=== PATIENT | female | born 1955 | race Caucasian/White ===

== ENCOUNTER → 2017-11-07 14:41 | Outpatient (CLI) | payer MEDICARE, SELFPAY ==
[2017-11-07 17:39] LABS: Albumin, Serum 3.2 g/dL (3.2-5.0); BUN 26 mg/dL (7-18); BUN/Creat Ratio 38.7 RATIO (10-20); Calcium,Total 8.5 mg/dL (8.5-10.1); Chloride 108 mmol/L (98-107); Creatinine, Serum 0.67 mg/dL (0.55-1.02); EST Glomerular Filtration Rate 94 mL/min (>60); Est Glom Filt Rate - Afr Amer 114 mL/min (>60); Glucose 97 mg/dL (74-106); Hemoglobin 12.1 g/dl (12.0-15.0); Mean Corp Hgb Conc 31.8 g/gl (32-36); Mean Corpuscular Hgb 28.1 pg (27.0-32.0); Mean Corpuscular Volume 88.4 fL (81-99); Mean Platelet Vol. 10.3 fl (6.2-12.0); Phosphorus 3.5 mg/dL (2.5-4.9); Platelet Count 240 K/mm3 (150-450); Potassium 3.7 mmol/L (3.5-5.1); RBC Distribution Width CV 14.3 % (11.6-14.6); RBC Distribution Width SD 46.1 fl (35.1-43.9); Sodium Level 140 mmol/L (136-145); White Blood Count 5.3 K/mm3 (4.4-11.0)
[2017-11-07 17:53] LABS: Protein, Urine (Random) 25.7 mg/dL (<11.9); Protein:Creat Ratio 223 mg/g CRE (0-200)
[2017-11-07 18:10] LABS: PTHIN 63.5 pg/mL (18.4-80.1); Vitamin D,25 Hydroxy 30.7 ng/mL (29.95-100.01)
[2017-11-08 14:28] LABS: Absolute Neutrophil Count 3.1 X10^3/uL (2.0-7.7); Basophil% 0.4 % (0-1); Eosinophils% 1.8 % (0-5); Lymphocyte % 36.4 % (19-41); Neutrophil # 3.05 X10^3/uL (2.7-7.7); Neutrophil % 54.4 % (47-70); POSITIVE COUNT NO; POSITIVE DIFFERENTIAL NO; POSITIVE MORPHOLOGY NO
[2017-11-08 14:29] LABS: Absolute Lymphocyte Count 2.04 X10^3/ul (0.83-4.51); Basophil# 0.02 X10^3/uL; Lymphocyte # 2.04 X10^3/ul (4.0); Monocyte# 0.39 X10^3/uL
== END ==
PROVIDERS: Family Provider Family Medicine; PCP Family Medicine; Visit Provider Internal Medicine Nephrology
DX: N18.9 Chronic kidney disease, unspecified (principal); D63.1 Anemia in chronic kidney disease; N25.81 Secondary hyperparathyroidism of renal origin; N02.8 Recurrent and persistent hematuria with other morphologic changes
CPT/HCPCS: 36415; 80069; 82306; 82570; 83970; 84156; 85025; 85027

== ENCOUNTER → 2018-06-27 12:56 | Outpatient (CLI) | payer MEDICARE, SELFPAY ==
--- NOTE | 2018-06-27 13:00 | RAD_ITS ---
STUDY: X-RAY CHEST REASON FOR EXAM: Female, 63 years old. History of breast cancer TECHNIQUE: PA and lateral views of the chest. COMPARISON: None. FINDINGS: Right breast implant. There is hyperinflation of the lungs consistent with chronic obstructive lung disease (COPD). There is no demonstrated pleural abnormality. Normal size heart. Normal mediastinum and dotty. Normal visualized pulmonary arteries. There is atherosclerotic calcification of the aortic arch with tortuosity. There is demineralization of the osseous structures. Mild degenerative changes. Normal visualized ribs, clavicles, and shoulders. There is no demonstrated abnormality of the visualized soft tissue structures of the upper abdomen. RAD/Chest PA and Lateral IMPRESSION: COPD. There is no acute cardiopulmonary disease. Other nonacute findings as outlined above. Electronically Signed: Sandra Dominguez MD at 2:59 EST , Service support ,
== END ==
PROVIDERS: Family Provider Family Medicine; PCP Family Medicine; Referring Provider Internal Medicine Medical Oncology; Visit Provider Internal Medicine Medical Oncology
DX: Z85.3 Personal history of malignant neoplasm of breast (principal)
CPT/HCPCS: 71046

== ENCOUNTER → 2019-01-01 | Outpatient (CLI) | payer MEDICARE, SELFPAY ==
[2018-07-19 13:02] VITALS: BMI 26.9
[2019-01-01 09:56] LABS: Hematocrit 38.2 % (37-47); Hemoglobin 12.7 g/dl (12.0-15.0); Mean Corp Hgb Conc 33.2 g/gl (32-36); Mean Corpuscular Hgb 28.9 pg (27.0-32.0); Mean Platelet Vol. 10.4 fl (6.2-12.0); Platelet Count 246 K/mm3 (150-450); RBC Distribution Width CV 13.8 % (11.6-14.6); Red Blood Count 4.39 M/mm3 (4.2-5.4); White Blood Count 4.4 K/mm3 (4.4-11.0)
[2019-01-01 10:01] LABS: Scan Indicated on CBC? Y/N NO
[2019-01-01 10:15] LABS: Microalbumin:Creatinine Ratio 133.3 mg/g CRE (<30 mg/g CRE)
[2019-01-01 10:24] LABS: Albumin, Serum 3.4 g/dL (3.2-5.0); BUN 21 mg/dL (7-18); BUN/Creat Ratio 31.7 RATIO (10-20); Calcium,Total 8.6 mg/dL (8.5-10.1); Chloride 107 mmol/L (98-107); Creatinine, Serum 0.66 mg/dL (0.55-1.02); EST Glomerular Filtration Rate 95 mL/min (>60); Est Glom Filt Rate - Afr Amer 115 mL/min (>60); Glucose 87 mg/dL (74-106); Potassium 3.7 mmol/L (3.5-5.1); Sodium Level 141 mmol/L (136-145)
[2019-01-01 10:55] LABS: PTHIN 72.1 pg/mL (18.4-80.1)
[2019-01-01 10:57] LABS: Vitamin D,25 Hydroxy 44.4 ng/mL (29.95-100.01)
== END | disposition home or self-care (01) ==
PROVIDERS: Referring Provider Internal Medicine Nephrology; Visit Provider Internal Medicine Nephrology
DX: N25.81 Secondary hyperparathyroidism of renal origin (principal); N18.9 Chronic kidney disease, unspecified; D63.1 Anemia in chronic kidney disease; N02.8 Recurrent and persistent hematuria with other morphologic changes
CPT/HCPCS: 36415; 80069; 82043; 82306; 82570; 83970; 85027

== ENCOUNTER → 2024-05-10 | Outpatient (CLI) | payer MEDICARE, OTHER, SELFPAY ==
[2024-05-15 16:10] LABS: Calprotectin, Stool 15 ug/g (0-120)
== END | disposition home or self-care (01) ==
LOC: LAB 08:55 → LABSPEC 08:57
PROVIDERS: PCP Family Medicine; Referring Provider Internal Medicine Medical Oncology; Visit Provider Internal Medicine Medical Oncology
DX: R19.7 Diarrhea, unspecified (principal); R10.84 Generalized abdominal pain; Z85.3 Personal history of malignant neoplasm of breast; K58.9 Irritable bowel syndrome, unspecified
CPT/HCPCS: 82274; 83630; 83993; 87177; 87209

== ENCOUNTER → 2024-06-04 | Outpatient (CLI) | payer MEDICARE, OTHER, SELFPAY ==
--- OUTSIDE RECORDS SUMMARY | 2024-06-04 07:49 | XMS RPT_ITS | CCD ---
Author Organization [facility] Care Team Providers Care Education Paraprofessional Name Role Phone Sisi Noonan Unavailable Unavailable CIRA MCCRAY DO Primary Care Physician Aisha Guerra PT Unavailable Unavailable Unavailable Primary Care Provider UnavailCIRA Sellers DO Primary Care Physician [phone] CIRA MCCRAY DO Primary Care Unavailable INA GODINEZ, DR BILL Levy Attending Unav ailable CIRA MCCRAY DO Attending Unavailable CIRA MCCRAY DO Primary Care Unavailable CIRA MCCRAY DO Primary Care Unavailable ANDRES JOHNSON Attending Unavailable JOHANN GODINEZ, DR JEREMIAH Moran Attending Unavailab CIRA Kwok DO Primary Care Unavailable Medications Current Medications Medication Drug Class(es) Dates Sig (Normalized) Sig (Original) alendronic acid 70 mg oral tablet (13 sources) Bisphosphonate Start: 09-01-2023 Fosamax 70 mg oral tablet Dose : 70 mg = 1 tab(s), Oral, qWeek, # 13 tab(s), 4 Refill(s), Pharmacy: [facility]/pharmacy #[id number], Osteopenia, 165, cm, 09/01/23 9:33:00 EST, Height, kg, 09/01/23 9:33:00 EST, Dosing Weight Start Date: 09/01/23 Status: Ordered Start: 06-26-2021 End: 08-20-2022 Fosamax 70 mg oral tablet Do se : 70 mg = 1 tab(s), Oral, qWeek, # 13 tab(s), 4 Refill(s), Pharmacy: [facility]/pharmacy #[id number], Osteopenia, 164.5, cm, 06/16/22 13:18:00 EDT, Height, kg, 06/16/22 13:18:00 EDT, Dosing Weight Start Date: 06/16/22 Status: Ordered Calcium (1 source) Phosphate Binder, Calcium Start: 06-27-2020 calcium calcium, 600mg, 0 Refill(s), 69.55 Start Date: 06/27/20 Status: Ordered calcium carbonate 1250 mg / cholecalciferol 125 unt oral tablet (6 sources) Vitamin D Start: 10-27-2021 take 1 tablet by mouth once daily calcium (as carbonate)-vitami n D 500 mg-3.125 mcg (125 intl units) oral tablet Dose = 1 tab(s), Oral, qDay, 0 Refill(s) Start Date: 10/27/21 Status: Ordered oxyquinoline sulfate 0.45721 mg/mg / sodium dodecyl sulfate 0.0001 mg/mg vaginal gel (8 sources) Start: 10-25-2022 Trimo-Shaikh 0.02 5% vaginal gel with applicator See Instructions, APPLY 0.5 GM VAGINALLY TWO TIMES WEEKLY, # 113.4 gram(s), 1 Refill(s), Pharmacy: [facility] STORE [id number], 164, cm, 08/04/22 10:08:00 EST, Height, kg, 08/04/22 10:08:00 EST, Dosing Weight Start Date: 10/25/22 Status: Ordered Start: 10-27-2021 TRIMOSAN TRIMO SHAIKH, 0.5gm, Vaginal, 2X/week, # 120 gram(s), 0 Refill(s), [id number] 164, cm, 10/27/21 13:47:00 EDT, Height, 76.9, kg, 10/27/21 13:47:00 EDT, Dosing Weight Start Date: 10/27/21 Status: Ordered emollients, vaginal gel (2 sources) Start: 11-02-2022 emollients, va ginal gel See Instructions, apply to pessary with weekly removal and reinsertion, # 47.2 gram(s), 0 Refill(s), Pharmacy: [facility]/pharmacy #[id number], 164, cm, 08/04/22 10:08:00 EST, Height, 76.7 Start Date: 11/02/22 Status: Ordered losartan potassium 50 mg oral tablet (6 sources) Angiotensin 2 Receptor Khai Start: 06-16-2022 losartan 50 mg oral tablet Dose : 50 mg = 1 tab(s), Oral, qDay, # 30 tab(s), 0 Refill(s) Start Date: 06/16/22 Status: Ordered triamcinolone 0.1% topical lotion (1 source) Start: 06-26-2021 End: 07-10-2021 triamcinolone 0.1% topical lotion Apply 1 anthony, Topical, QID, X 14 day(s), # 60 mL, 0 Refill(s), Pharmacy: [facility]/pharmacy #[id number], Lotion, 163.9, cm, 06/26/21 13:25:00 EST, Height, 78.4, kg, 06/26/21 13:25:00 EST, Dosing Weight Start Date: 06/26/21 Stop Date: 07/10/21 Status: Ordered Vitamin D3 1000 intl units oral capsule (1 source) Start: 04-11-2019 Vitamin D3 100 0 intl units oral capsule Dose : 1,000 unit(s) = 1 cap(s), Oral, Daily, 0 Refill(s) Start Date: 04/11/19 Status: Ordered Vitamin D3 25 mcg (1000 intl units) oral capsule (1 source) Start: 06-16-2022 Vitamin D3 25 mcg (1000 intl units) oral capsule Dose : 25 mcg = 1 cap(s), Oral, Daily, 0 Refill(s) Start Date: 06/16/22 Status: Ordered Vitamin D3 50 mcg (2000 intl units) oral capsule (5 sources) Start: 08-04-2022 Vitamin D3 50 mcg (2000 intl units) oral capsule Dose : 50 mcg = 1 cap(s), Oral, qDay, # 60 cap(s), 0 Refill(s) Start Date: 08/04/22 Status: Ordered Completed/Discontinued Medications Medication Drug Class(es) Dates Sig (Normalized) Sig (Original) calcium phosphate dibas/vit D3 (VITAMIN D, WITH CALCIUM, ORAL) (1 source) Start: 9 take 1 capsule by mouth once daily calcium phosphate dibas/vit D3 (VITAMIN D, WITH CALCIUM, ORAL) Take 1 capsule by mouth once daily. 0 04/11/2019 Active Comment on above: Take 1 capsule by [facility] once daily. lisinopril 10 mg oral tablet (8 sources) Angiotensin Converting Enzyme Inhibitor Start: 9 take 1 tablet by mouth once daily lisinopril (ZESTRIL, PRINIVIL) 10 mg tablet Take 10 mg by mouth once daily. 0 11/06/2019 Active Comment on above: Take 10 mg by mouth once daily. methylPREDNISolone (1 source) Corticosteroid Start: 0 methylPREDNISolone (MEDROL, MAISHA,) 4 mg Dose-Pack Indications: Poison dion dermatitis As instructed per package, please take with food 1 Package 0 01/22/2020 Active Comment on above: As instructed per [facility] [place], please take with food Problems Active Problems Problem Classification Problem Date Documented Date Episodic/Chronic Acute bronchitis (1 source) Acute bronchitis 11-15-2023 Episodic Allergic reactions (13 sources) Contact dermatitis 06-26-2021 Episodic Cancer of breast (13 sources) Malignant tumor of breast 04-10-2019 Chroni c Comment on above: in past Cancer of breast (14 sources) History of malignant neoplasm of breast; Translations: [Personal history of malignant neoplasm of breast] Onset: 0 05-15-2019 Episodic Deficiency and other anemia (1 source) Anemia of chronic renal failure; Translations: [Anemia in chronic kidney disease] Chronic Disorders of lipid metabolism (13 sources) Hypercholesterolemia 04-10-2019 Chronic Essential hypertension (14 sources) Hypertensive disorder; Translations: [Essential (primary) hypertension] Onset: 0 05-15-2019 Chronic Genitourinary symptoms and ill-defined conditions (1 source) Proteinuria; Translations: [Proteinuria, unspecified] Episodic Nephritis; nephrosis; renal sclerosis (13 sources) 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 Nutritional deficiencies (15 sources) Vitamin D deficiency; Translations: [Vitamin D deficiency, unspecified] Onset: 0 04-11-2019 Chronic Osteoarthritis (1 source) Osteoarthritis of knee; Translations: [Unilateral primary osteoarthritis, right knee] Chronic Other aftercare (1 source) Follow-up orthopedic assessment; Translations: [Aftercare following joint replacement surgery] Chronic Other bone disease and musculoskeletal deformities (13 sources) Osteopenia 04-10-2019 Episodic Other connective tissue disease (1 source) Artificial knee joint present; Translations: [Presence of right artificial knee joint] Chronic Other diseases of kidney and ureters (1 source) Hyperparathyroidism due to renal insufficiency; Translations: [Secondary hyperparathyroidism of renal origin] Chronic Other diseases of kidney and ureters (13 sources) Anemia of renal disease 04-11-2019 Episodic Other endocrine disorders (13 sources) Secondary hyperparathyroidism 04-10-2019 Chronic Other non-traumatic joint disorders (13 sources) Knee pain 04-11-2019 Episodic Other nutritional; endocrine; and metabolic disorders (1 source) Overweight in adulthood with body mass index of 25 or more but less than 30 11-15-2023 Episodic Other screening for suspected conditions (not mental disorders or infectious disease) (5 sources) Viral screening status 08-04-2022 Episodic Other upper respiratory disease (1 source) Seasonal allergy 11-15-2023 Chronic Other upper respiratory infections (12 sources) Pharyngitis 09-12-2021 Episodic Residual codes; unclassified (13 sources) Needs influenza immunization 06-27-2020 Episodic Residual codes; unclassified (13 sources) Requires vaccination 06-27-2020 Episodic Residual codes; unclassified (1 source) Screening due 11-15-2023 Episodic Unclassified (1 source) Unknown / UNK(Unknown) Onset: 7 Unclassified (20 sources) Patient encounter status 04-11-2019 Unclassified (6 sources) Pain of knee region 06-16-2022 Unclassified (5 sources) Influenza vaccination status 08-04-2022 Unclassified (1 source) Never used tobacco 09-01-2023 Past or Other Problems Problem Classification Problem Date Documented Da te Episodic/Chronic Unclassified (1 source) RT EARACHE,PAIN MOVING INTO NECK AND JAW Onset: 05-14-2017 Results Test Name Value Interpretation Reference Range Facility MA MAMMOGRAM SCREENING LEFT W/TOMOon 04-09-2024 MA MAMMOGRAM SCREENING LEFT W/JOSÉ ORIGINAL FROM: [facility] [address] [place] [id number] PROCEDURE FOR: GABRIELE CUEVAS [address] [place] [address] Home: PID#: [id number] Exam#: [id number] : 1955 Age: 69 TO: ANDRES JOHNSON MD [address] [address] EXAMINATION: SCREENING DIGITAL LEFT MAMMOGRAM WITH TOMOSYNTHESIS, 04/09/2024 11:11 am TECHNIQUE: Screening mammography of the left breast was performed with tomosynthesis. 2D standard and 3D tomosynthesis combination imaging performed through the left breast in the MLO and CC projection. Computer aided detection was utilized in the interpretation of this exam. COMPARISON: 04/08/2023, 04/07/2022 HISTORY: Breast cancer screening. FINDINGS: BREAST DENSITY: The breasts are heterogeneously dense, which may obscure small masses. There are benign appearing calcifications in the left breast. There is a benign appearing unchanged asymmetry in the left breast. There are no significant masses or calcifications. IMPRESSION: No mammographic evidence of malignancy. Continued screening with annual mammograms is recommended. Tyrer Cuzick risk calculations do not apply for this patient. BIRADS: BI-RADS: 2: Benign RECALL: 1 year screening RECALL TYPE: mammo LETTER SENT: Normal BI-RADS 1 and 2 Interpreted by: Anderson Hummel MD Preliminary Report By: Anderson Hummel MD Electronically signed By Anderson Hummel MD Dictated Date: 04/09/2024 6:01:24 PM Prelim Date: 04/09/2024 6:02:04 PM Sign Date: 04/09/2024 6:02:04 PM Ordering Provider: ANDRES JOHNSON copy to: CIRA MCCRAY DO, ph: [phone], fax: NO FAX Attendant [employer]: LIZET CHAIREZ RT(R)(M)(CT) letter sent: Normal BI-RADS 1 and 2 Mammogram BI-RADS: 2 Benign Normal [facility] ([place]) .Auto Diffon 01-05-2024 Basophil, Absolute 0.1 10 3/mcL Normal 0.0-0.2 [facility] ([place]) Comment on above: Performed By: #### P TH #### [address] [address] #### GFR, RFP, VIDH, ADIFF, ANEU, CBC #### [address] [address] Basophils/100 WBC (Bld) 1.3 % Normal 0.0-2.5 [facility] ([place]) Comment on above: Performed By: #### P TH #### [place] [address] #### GFR, RFP, VIDH, ADIFF, ANEU, CBC #### [address] [address] Eosinophil, Absolute 0.2 10 3/mcL Normal 0.0-0.4 [facility] ([place]) Comment on above: Performed By: #### P TH #### [place] [address] #### GFR, RFP, VIDH, ADIFF, ANEU, CBC #### [address] [address] Eosinophils/100 WBC (Bld) 2.8 % Normal 0.0-7.0 [facility] ([place] Comment on above: Performed By: #### P TH #### [place] [address] #### GFR, RFP, VIDH, ADIFF, ANEU, CBC #### [address] [address] Lymphocyte, Absolute 3.2 10 3/mcL Normal 0.8-3.9 [facility] ([place]) Comment on above: Performed By: #### P TH #### [place] [address] #### GFR, RFP, VIDH, ADIFF, ANEU, CBC #### [address] [address] Lymphocytes/100 WBC (Bld) 42.9 % Normal 10.0-50.0 [facility] ([place] Comment on above: Performed By: #### P TH #### [place] [address] #### GFR, RFP, VIDH, ADIFF, ANEU, CBC #### [address] [address] Monocyte, Absolute 0.5 10 3/mcL Normal 0.2-1.0 [facility] ([place]) Comment on above: Performed By: #### P TH #### [address] [address] #### GFR, RFP, VIDH, ADIFF, ANEU, CBC #### [address] [address] Monocytes/100 WBC (Bld) 7.4 % Normal 1.7-13.0 [facility] ([place] Comment on above: Performed By: #### P TH #### [place] [address] #### GFR, RFP, VIDH, ADIFF, ANEU, CBC #### [address] [address] Neutrophils/100 WBC (Bld) 45.6 % Normal 37.0-80.0 [facility] ([place]) Comment on above: Performed By: #### P TH #### [place] [address] #### GFR, RFP, VIDH, ADIFF, ANEU, CBC #### [address] [address] .GFRon 01-05-2024 GFR 89 ml/min/1.73sqm Normal [facility] ([place]) Comment on above: Result Comment: GFR Population mean for , Non- Americans Ages 20-29 = 116 mL/min/1.73 sq.m. Ages 30-39 = 107 mL/min/1.73 sq.m. Ages 40-49 = 99 mL/min/1.73 sq.m. Ages 50-59 = 93 mL/min/1.73 sq.m. Ages 60-69 = 85 mL/min/1.73 sq.m. Ages 70+ = 75 mL/min/1.73 sq.m. Chronic Kidney Disease: Less than 60 mL/min/1.73 square meters End Stage Renal Disease: Less than 15 mL/min/1.73 square meters Performed By: #### P TH #### [place] [address] #### GFR, RFP, VIDH, ADIFF, ANEU, CBC #### [address] [address] GFR Non- 73 ml/min/1.73sqm Normal [facility] ([place]) Comment on above: Result Comment: GFR Population mean for , Non- Americans Ages 20-29 = 116 mL/min/1.73 sq.m. Ages 30-39 = 107 mL/min/1.73 sq.m. Ages 40-49 = 99 mL/min/1.73 sq.m. Ages 50-59 = 93 mL/min/1.73 sq.m. Ages 60-69 = 85 mL/min/1.73 sq.m. Ages 70+ = 75 mL/min/1.73 sq.m. Chronic Kidney Disease: Less than 60 mL/min/1.73 square meters End Stage Renal Disease: Less than 15 mL/min/1.73 square meters Performed By: #### P TH #### [place] [address] #### GFR, RFP, VIDH, ADIFF, ANEU, CBC #### [address] [address] .NEUABSon 01-05-2024 Neutrophil, Absolute 3.4 10 3/mcL Normal 2.9-6.2 [facility] ([place]) Comment on above: Performed By: #### P TH #### [place] [address] #### GFR, RFP, VIDH, ADIFF, ANEU, CBC #### [address] [address] CBCon 01-05-2024 Erythrocyte distribution width (RBC) [Ratio] 15.3 % High 11.5-14.5 [facility] ([place]) Comment on above: Performed By: #### P TH #### [place] [address] #### GFR, RFP, VIDH, ADIFF, ANEU, CBC #### [address] [address] Hematocrit (Bld) [Volume fraction] 37.7 % Normal 37.0-47.0 [facility] ([place] Comment on above: Performed By: #### P TH #### [place] [address] #### GFR, RFP, VIDH, ADIFF, ANEU, CBC #### [address] [address] Hgb 13.1 G/dL Normal 12.0-16.0 [facility] ([place] Comment on above: Performed By: #### P TH #### [place] [address] #### GFR, RFP, VIDH, ADIFF, ANEU, CBC #### [address] [address] MCH (RBC) [Entitic mass] 29.5 pg Normal 27.0-31.2 [facility] ([place] Comment on above: Performed By: #### P TH #### [place] [address] #### GFR, RFP, VIDH, ADIFF, ANEU, CBC #### [address] [address] MCHC 34.8 G/dL Normal 33.0-37.0 [facility] ([place] Comment on above: Performed By: #### P TH #### [place] [address] #### GFR, RFP, VIDH, ADIFF, ANEU, CBC #### [address] [address] MCV (RBC) [Entitic vol] 84.7 fL Normal 80.0-94.0 [facility] ([place] Comment on above: Performed By: #### P TH #### [place] [address] #### GFR, RFP, VIDH, ADIFF, ANEU, CBC #### [address] [address] Platelet 243 10 3/mcL Normal 130-400 [facility] ([place]) Comment on above: Performed By: #### P TH #### [place] [address] #### GFR, RFP, VIDH, ADIFF, ANEU, CBC #### [address] [address] Platelet mean volume (Bld) [Entitic vol] 7.9 fL Normal 7.4-10.4 [facility] ([place] Comment on above: Performed By: #### P TH #### [place] [address] #### GFR, RFP, VIDH, ADIFF, ANEU, CBC #### [address] [address] RBC 4.45 10 6/mcL Normal 4.20-5.40 [facility] ([place] Comment on above: Performed By: #### P TH #### [place] [address] #### GFR, RFP, VIDH, ADIFF, ANEU, CBC #### [address] [address] WBC 7.5 10 3/mcL Normal 4.6-10.8 [facility] ([place] Comment on above: Performed By: #### P TH #### [place] [address] #### GFR, RFP, VIDH, ADIFF, ANEU, CBC #### [address] [address] CRURon 01-05-2024 U Creatinine 67.6 mg/dL Normal 28.0-117.0 [facility] ([place] Comment on above: Performed By: #### P MIGUEL ANGEL GOODWIN #### [address] [address] PRURon 01-05-2024 U Protein 47 mg/dL High 0-11 [facility] ([place] Comment on above: Performed By: #### P MIGUEL ANGEL GOODWIN #### [address] [address] PTHon 01-05-2024 PTH, Intact 78.2 pg/mL Normal 18.5-88.0 [facility] ([place] Comment on above: Performed By: #### P TH #### [place] [address] #### GFR, RFP, VIDH, ADIFF, ANEU, CBC #### [address] [address] RFPon 01-05-2024 Albumin Level 3.4 G/dL Normal 3.4-4.8 [facility] ([place] Comment on above: Performed By: #### P TH #### [place] [address] #### GFR, RFP, VIDH, ADIFF, ANEU, CBC #### [address] [address] BUN/Creatinine Ratio 24 ratio Normal 7-27 [facility] ([place]) Comment on above: Performed By: #### P TH #### [place] [address] #### GFR, RFP, VIDH, ADIFF, ANEU, CBC #### [address] [address] Calcium [Mass/Vol] 8.8 mg/dL Normal 8.4-10.2 [facility] ([place]) Comment on above: Performed By: #### P TH #### [place] [address] #### GFR, RFP, VIDH, ADIFF, ANEU, CBC #### [address] [address] Chloride [Moles/Vol] 104 mmol/L Normal 98-107 [facility] ([place]) Comment on above: Performed By: #### P TH #### [place] [address] #### GFR, RFP, VIDH, ADIFF, ANEU, CBC #### [address] [address] CO2 [Moles/Vol] 28 mmol/L Normal 23-31 [facility] ([place] Comment on above: Performed By: #### P TH #### [place] [address] #### GFR, RFP, VIDH, ADIFF, ANEU, CBC #### [address] [address] Creatinine [Mass/Vol] 0.78 mg/dL Normal 0.55-1.02 [facility] ([place]) Comment on above: Performed By: #### P TH #### [place] [address] #### GFR, RFP, VIDH, ADIFF, ANEU, CBC #### [address] [address] Electrolyte Balance 8.0 mEq/L Normal 4.0-15.0 [facility] ([place]) Comment on above: Performed By: #### P TH #### [place] [address] #### GFR, RFP, VIDH, ADIFF, ANEU, CBC #### [address] [address] Glucose [Mass/Vol] 93 mg/dL Normal 80-115 [facility] ([place]) Comment on above: Performed By: #### P TH #### [place] [address] #### GFR, RFP, VIDH, ADIFF, ANEU, CBC #### [address] [address] Phosphate [Mass/Vol] 3.8 mg/dL Normal 2.3-4.1 [facility] ([place] Comment on above: Performed By: #### P TH #### [place] [address] #### GFR, RFP, VIDH, ADIFF, ANEU, CBC #### [address] [address] Potassium [Moles/Vol] 4.0 mmol/L Normal 3.5-5.1 [facility] ([place]) Comment on above: Performed By: #### P TH #### [place] [address] #### GFR, RFP, VIDH, ADIFF, ANEU, CBC #### [address] [address] Sodium [Moles/Vol] 140 mmol/L Normal 136-145 [facility] ([place]) Comment on above: Performed By: #### P TH #### [address] [address] #### GFR, RFP, VIDH, ADIFF, ANEU, CBC #### [address] [address] Urea nitrogen [Mass/Vol] 19 mg/dL High 7-18 [facility] ([place]) Comment on above: Performed By: #### P TH #### [place] [address] #### GFR, RFP, VIDH, ADIFF, ANEU, CBC #### [address] [address] VIDHon 01-05-2024 Vit. D 25-Hydroxy 48.4 ng/mL Normal [facility] ([place]) Comment on above: Result Comment: Inte rpretive Values Based on Total 25(OH) Vitamin D: Deficient <20 ng/mL Insufficient 20 - <30 ng/mL Sufficient 30-100 ng/mL Performed By: #### P TH #### [place] [address] #### GFR, RFP, VIDH, ADIFF, ANEU, CBC #### [address] [address] .GFRon 09-06-2023 GFR 106 ml/min/1.73sqm Normal [facility] ([place]) Comment on above: Result Comment: GFR Population mean for , Non- Americans Ages 20-29 = 116 mL/min/1.73 sq.m. Ages 30-39 = 107 mL/min/1.73 sq.m. Ages 40-49 = 99 mL/min/1.73 sq.m. Ages 50-59 = 93 mL/min/1.73 sq.m. Ages 60-69 = 85 mL/min/1.73 sq.m. Ages 70+ = 75 mL/min/1.73 sq.m. Chronic Kidney Disease: Less than 60 mL/min/1.73 square meters End Stage Renal Disease: Less than 15 mL/min/1.73 square meters Performed By: #### P TH #### [place] [address] #### GFR, RFP, VIDH, ADIFF, ANEU, CBC #### [address] [address] GFR Non- 87 ml/min/1.73sqm Normal [facility] ([place]) Comment on above: Result Comment: GFR Population mean for , Non- Americans Ages 20-29 = 116 mL/min/1.73 sq.m. Ages 30-39 = 107 mL/min/1.73 sq.m. Ages 40-49 = 99 mL/min/1.73 sq.m. Ages 50-59 = 93 mL/min/1.73 sq.m. Ages 60-69 = 85 mL/min/1.73 sq.m. Ages 70+ = 75 mL/min/1.73 sq.m. Chronic Kidney Disease: Less than 60 mL/min/1.73 square meters End Stage Renal Disease: Less than 15 mL/min/1.73 square meters Performed By: #### P TH #### [place] [address] #### GFR, RFP, VIDH, ADIFF, ANEU, CBC #### [address] [address] [facility] Albumin Level 3.3 G/dL Low 3.4-4.8 [facility] ([place] Comment on above: Order Comment: Copy to Dr. Buckley please Performed By: #### P TH #### [place] [address] #### GFR, RFP, VIDH, ADIFF, ANEU, CBC #### [address] [address] Albumin/Globulin [Mass ratio] 0.9 {ratio} Low 1.1-2.5 [facility] ([place] Comment on above: Order Comment: Copy to Dr. Buckley please Performed By: #### P TH #### [place] [address] #### GFR, RFP, VIDH, ADIFF, ANEU, CBC #### [address] [address] ALP [Catalytic activity/Vol] 66 U/L Normal 40-135 [facility] ([place] Comment on above: Order Comment: Copy to Dr. Buckley please Performed By: #### P TH #### [place] [address] #### GFR, RFP, VIDH, ADIFF, ANEU, CBC #### [address] [address] ALT [Catalytic activity/Vol] 16 U/L Normal 14-59 [facility] ([place] Comment on above: Order Comment: Copy to Dr. Buckley please Performed By: #### P TH #### [place] [address] #### GFR, RFP, VIDH, ADIFF, ANEU, CBC #### [address] [address] AST [Catalytic activity/Vol] 12 U/L Normal 10-40 [facility] ([place] Comment on above: Order Comment: Copy to Dr. Buckley please Performed By: #### P TH #### [place] [address] #### GFR, RFP, VIDH, ADIFF, ANEU, CBC #### [address] [address] Bili Total 0.5 mg/dL Normal 0.2-1.0 [facility] ([place] Comment on above: Order Comment: Copy to Dr. Buckley please Result Comment: Use of this assay is not recommended for patients undergoing treatment with eltrombopag due to the potential for falsely elevated results. Performed By: #### P TH #### [place] [address] #### GFR, RFP, VIDH, ADIFF, ANEU, CBC #### [address] [address] BUN/Creatinine Ratio 25 ratio Normal 7-27 [facility] ([place] Comment on above: Order Comment: Copy to Dr. Buckley please Performed By: #### P TH #### [place] [address] #### GFR, RFP, VIDH, ADIFF, ANEU, CBC #### [address] [address] Calcium [Mass/Vol] 9.0 mg/dL Normal 8.4-10.2 [facility] ([place]) Comment on above: Order Comment: Copy to Dr. Buckley please Performed By: #### P TH #### [place] [address] #### GFR, RFP, VIDH, ADIFF, ANEU, CBC #### [address] [address] Chloride [Moles/Vol] 107 mmol/L Normal 98-107 [facility] ([place] Comment on above: Order Comment: Copy to Dr. Buckley please Performed By: #### P TH #### [place] [address] #### GFR, RFP, VIDH, ADIFF, ANEU, CBC #### [address] [address] CO2 [Moles/Vol] 28 mmol/L Normal 23-31 [facility] ([place] Comment on above: Order Comment: Copy to Dr. Buckley please Performed By: #### P TH #### [place] [address] #### GFR, RFP, VIDH, ADIFF, ANEU, CBC #### [address] [address] Creatinine [Mass/Vol] 0.67 mg/dL Normal 0.55-1.02 [facility] ([place] Comment on above: Order Comment: Copy to Dr. Buckley please Performed By: #### P TH #### [place] [address] #### GFR, RFP, VIDH, ADIFF, ANEU, CBC #### [address] [address] Electrolyte Balance 10.0 mEq/L Normal 4.0-15.0 [facility] ([place]) Comment on above: Order Comment: Copy to Dr. Buckley please Performed By: #### P TH #### [place] [address] #### GFR, RFP, VIDH, ADIFF, ANEU, CBC #### [address] [address] Globulin 3.6 G/dL Normal [facility] ([place]) Comment on above: Order Comment: Copy to Dr. Buckley please Performed By: #### P TH #### [place] [address] #### GFR, RFP, VIDH, ADIFF, ANEU, CBC #### [address] [address] Glucose [Mass/Vol] 82 mg/dL Normal 80-115 [facility] ([place]) Comment on above: Order Comment: Copy to Dr. Buckley please Performed By: #### P TH #### [place] [address] #### GFR, RFP, VIDH, ADIFF, ANEU, CBC #### [address] [address] Potassium [Moles/Vol] 4.7 mmol/L Normal 3.5-5.1 [facility] ([place]) Comment on above: Order Comment: Copy to Dr. Buckley please Performed By: #### P TH #### [place] [address] #### GFR, RFP, VIDH, ADIFF, ANEU, CBC #### [address] [address] Sodium [Moles/Vol] 145 mmol/L Normal 136-145 [facility] ([place]) Comment on above: Order Comment: Copy to Dr. Buckley please Performed By: #### P TH #### [place] [address] #### GFR, RFP, VIDH, ADIFF, ANEU, CBC #### [address] [address] Total Protein 6.9 G/dL Normal 6.4-8.2 [facility] ([place]) Comment on above: Order Comment: Copy to Dr. Buckley please Performed By: #### P TH #### [place] [address] #### GFR, RFP, VIDH, ADIFF, ANEU, CBC #### [address] [address] Urea nitrogen [Mass/Vol] 17 mg/dL Normal 7-18 [facility] ([place]) Comment on above: Order Comment: Copy to Dr. Buckley please Performed By: #### P TH #### [place] [address] #### GFR, RFP, VIDH, ADIFF, ANEU, CBC #### [address] [address] LIPIDon 09-06-2023 Cholesterol [Mass/Vol] 198 mg/dL Normal 0-200 [facility] ([place]) Comment on above: Order Comment: Copy to Dr. Buckley please Result Comment: Chol esterol Reference Interval: Less than 200 Desirable 200-239 Borderline high risk 240 and above High risk Performed By: #### P TH #### [place] [address] #### GFR, RFP, VIDH, ADIFF, ANEU, CBC #### [address] [address] Cholesterol in HDL [Mass/Vol] 63 mg/dL High 40-60 [facility] ([place]) Comment on above: Order Comment: Copy to Dr. Buckley please Performed By: #### P TH #### [place] [address] #### GFR, RFP, VIDH, ADIFF, ANEU, CBC #### [address] [address] Cholesterol in LDL [Mass/Vol] 127 mg/dL Normal 0-130 [facility] ([place]) Comment on above: Order Comment: Copy to Dr. Buckley please Performed By: #### P TH #### [place] [address] #### GFR, RFP, VIDH, ADIFF, ANEU, CBC #### [place] [address] Triglyceride [Mass/Vol] 38 mg/dL Normal 0-150 [facility] ([place]) Comment on above: Order Comment: Copy to Dr. Buckley please Result Comment: Trig lyceride Reference Interval: Less than 150 Normal 150-199 Borderline high risk 200-499 High risk 500 or higher Very high risk Performed By: #### P TH #### [place] [address] #### GFR, RFP, VIDH, ADIFF, ANEU, CBC #### [place] [address] TSHon 09-06-2023 TSH Qn 1.46 m[IU]/L Normal 0.36-3.74 [facility]) Comment on above: Order Comment: Copy to Dr. Buckley please Performed By: #### V IDH, TSH, CMP, LIPID, GFR #### [place] [address] VIDHon 09-06-2023 Vit. D 25-Hydroxy 56.1 ng/mL Normal [facility]) Comment on above: Order Comment: Copy to Dr. Buckley please Result Comment: Inte rpretive Values Based on Total 25(OH) Vitamin D: Deficient <20 ng/mL Insufficient 20 - <30 ng/mL Sufficient 30-100 ng/mL Performed By: #### P TH #### [place] [address] #### GFR, RFP, VIDH, ADIFF, ANEU, CBC #### [place] [address] LABORATORYOrdered By: SYSTEM SYSTEM on 01-13-2023 25-hydroxyvitamin D3 [Mass/Vol] 45.9 ng/mL Invalid Interpretation Code AO ADM SS Albumin BCP dye [Mass/Vol] 3.4 G/dL Invalid Interpretation Code 3.4 - 4.8 G/dL AO ADM SS Calcium [Mass/Vol] 8.9 mg/dL Invalid Interpretation Code 8.4 - 10.2 mg/dL AO ADM SS Chloride [Moles/Vol] 103 mmol/L Invalid Interpretation Code 98 - 107 mmol/L AO ADM SS CO2 [Moles/Vol] 29 mmol/L Invalid Interpretation Code 23 - 31 mmol/L AO ADM SS Creatinine [Mass/Vol] 0.74 mg/dL Invalid Interpretation Code 0.55 - 1.02 mg/dL AO ADM SS Electrolyte Balance 7.0 mEq/L Invalid Interpretation Code 4.0 - 15.0 mEq/L AO ADM SS GFR/1.73 sq M.predicted among blacks MDRD (S/P/Bld) [Vol rate/Area] 95 ml/min/1.73sqm Invalid Interpretation Code AO Chemistry S GFR/1.73 sq M.predicted among non-blacks MDRD (S/P/Bld) [Vol rate/Area] 78 ml/min/1.73sqm Invalid Interpretation Code AO Chemistry S Glucose [Mass/Vol] 93 mg/dL Invalid Interpretation Code 80 - 115 mg/dL AO ADM SS Parathyrin.intact [Mass/Vol] 74.5 pg/mL Invalid Interpretation Code 18.5 - 88.0 pg/mL AH ADM SS Phosphate [Mass/Vol] 4.0 mg/dL Invalid Interpretation Code 2.3 - 4.1 mg/dL AO ADM SS Potassium [Moles/Vol] 4.6 mmol/L Invalid Interpretation Code 3.5 - 5.1 mmol/L AO ADM SS Sodium [Moles/Vol] 139 mmol/L Invalid Interpretation Code 136 - 145 mmol/L AO ADM SS Urea nitrogen [Mass/Vol] 17 mg/dL Invalid Interpretation Code 7 - 18 mg/dL AO ADM SS Urea nitrogen/Creatinine [Mass ratio] 23 ratio Invalid Interpretation Code 7 - 27 ratio AO ADM SS LABORATORYOrdered By: Khushbu Cruz on 01-13-2023 Creatinine (U) [Mass/Vol] 51.7 mg/dL Invalid Interpretation Code 28.0 - 117.0 mg/dL AO ADM SS Protein (U) [Mass/Vol] 36 mg/dL Invalid Interpretation Code 0 - 11 mg/dL AO ADM SS LABORATORYOrdered By: Cass Chu on 01-13-2023 Erythrocyte distribution width (RBC) [Ratio] 14.8 % Invalid Interpretation Code 11.5 - 14.5 % AO Workflow SS Hematocrit (Bld) [Volume fraction] 38.7 % Invalid Interpretation Code 37.0 - 47.0 % AO Workflow SS Hemoglobin (Bld) [Mass/Vol] 12.7 G/dL Invalid Interpretation Code 12.0 - 16.0 G/dL AO Workflow SS MCH (RBC) [Entitic mass] 28.0 pg Invalid Interpretation Code 27.0 - 31.2 pg AO Workflow SS MCHC 32.9 G/dL Invalid Interpretation Code 33.0 - 37.0 G/dL AO Workflow SS MCV (RBC) [Entitic vol] 85.0 fL Invalid Interpretation Code 80.0 - 94.0 fL AO Workflow SS Platelet mean volume (Bld) [Entitic vol] 8.1 fL Invalid Interpretation Code 7.4 - 10.4 fL AO Workflow SS Platelets (Bld) [#/Vol] 292 103/mcL Invalid Interpretation Code 130 - 400 10^3/mcL AO Workflow SS RBC (Bld) [#/Vol] 4.55 106/mcL Invalid Interpretation Code 4.20 - 5.40 10^6/mcL AO Workflow SS WBC (Bld) [#/Vol] 7.3 103/mcL Invalid Interpretation Code 4.6 - 10.8 10^3/mcL AO Workflow SS LABORATORYOrdered By: Tanika Cowan on 01-13-2023 U Ratio Prot/Creat 0.7 ratio Invalid Interpretation Code AO Chemistry S LABORATORYOrdered By: SYSTEM SYSTEM on 08-17-2022 Albumin BCP dye [Mass/Vol] 3.3 G/dL Invalid Interpretation Code 3.4 - 4.8 G/dL AO ADM SS Albumin/Globulin [Mass ratio] 0.8 {ratio} Invalid Interpretation Code 1.1 - 2.5 ratio AO ADM SS ALP [Catalytic activity/Vol] 79 U/L Invalid Interpretation Code 40 - 135 U/L AO ADM SS ALT With P-5'-P [Catalytic activity/Vol] 16 U/L Invalid Interpretation Code 14 - 59 U/L AO ADM SS AST With P-5'-P [Catalytic activity/Vol] 15 U/L Invalid Interpretation Code 10 - 40 U/L AO ADM SS Bilirubin [Mass/Vol] 0.3 mg/dL Invalid Interpretation Code 0.2 - 1.0 mg/dL AO ADM SS Calcium [Mass/Vol] 9.1 mg/dL Invalid Interpretation Code 8.4 - 10.2 mg/dL AO ADM SS Chloride [Moles/Vol] 103 mmol/L Invalid Interpretation Code 98 - 107 mmol/L AO ADM SS CO2 [Moles/Vol] 27 mmol/L Invalid Interpretation Code 23 - 31 mmol/L AO ADM SS Creatinine [Mass/Vol] 0.76 mg/dL Invalid Interpretation Code 0.55 - 1.02 mg/dL AO ADM SS Electrolyte Balance 8.0 mEq/L Invalid Interpretation Code 4.0 - 15.0 mEq/L AO ADM SS GFR 92 ml/min/1.73sqm Invalid Interpretation Code AO Chemistry S GFR Non- 76 ml/min/1.73sqm Invalid Interpretation Code AO Chemistry S Globulin 3.9 G/dL Invalid Interpretation Code AO ADM SS Glucose [Mass/Vol] 96 mg/dL Invalid Interpretation Code 80 - 115 mg/dL AO ADM SS Potassium [Moles/Vol] 4.2 mmol/L Invalid Interpretation Code 3.5 - 5.1 mmol/L AO ADM SS Protein [Mass/Vol] 7.2 G/dL Invalid Interpretation Code 6.4 - 8.2 G/dL AO ADM SS Sodium [Moles/Vol] 138 mmol/L Invalid Interpretation Code 136 - 145 mmol/L AO ADM SS TSH Qn 1.12 m[IU]/L Invalid Interpretation Code 0.36 - 3.74 mcIU/mL AO ADM SS Urea nitrogen [Mass/Vol] 15 mg/dL Invalid Interpretation Code 7 - 18 mg/dL AO ADM SS Urea nitrogen/Creatinine [Mass ratio] 20 ratio Invalid Interpretation Code 7 - 27 ratio AO ADM SS Vit. D 25-Hydroxy 45.1 ng/mL Invalid Interpretation Code AO ADM SS LABORATORYOrdered By: Tanika Schneider on 08-17-2022 Cholesterol [Mass/Vol] 208 mg/dL Invalid Interpretation Code 0 - 200 mg/dL AO ADM SS Cholesterol in HDL [Mass/Vol] 54 mg/dL Invalid Interpretation Code 40 - 60 mg/dL AO ADM SS Cholesterol in LDL [Mass/Vol] 138 mg/dL Invalid Interpretation Code 0 - 130 mg/dL AO ADM SS Triglyceride [Mass/Vol] 81 mg/dL Invalid Interpretation Code 0 - 150 mg/dL AO ADM SS LABORATORYOrdered By: Trena Dale on 08-17-2022 HCV Ab IA Ql Non-Reactive (08/17/22 9:16 AM) Invalid Interpretation Code Non-Reactive ADM SS HCV Ab IA Ql Nonreactive: Samples with a value < 0.80 are considered nonreactive (negative) for antibodies to HCV.A negative test result does not exclude the possibility of exposure to or infection with HCV. HCV antibodies may be undetectable in some stages of the infection and in some clinical conditions. Invalid Interpretation Code AH Chemistry S LABORATORYOrdered By: Emy Amaral on 06-15-2022 Albumin BCP dye [Mass/Vol] 3.4 G/dL Invalid Interpretation Code 3.4 - 4.8 G/dL AO ADM SS Calcium [Mass/Vol] 8.6 mg/dL Invalid Interpretation Code 8.4 - 10.2 mg/dL AO ADM SS Chloride [Moles/Vol] 104 mmol/L Invalid Interpretation Code 98 - 107 mmol/L AO ADM SS CO2 [Moles/Vol] 29 mmol/L Invalid Interpretation Code 23 - 31 mmol/L AO ADM SS Creatinine [Mass/Vol] 0.69 mg/dL Invalid Interpretation Code 0.55 - 1.02 mg/dL AO ADM SS Electrolyte Balance 8.0 mEq/L Invalid Interpretation Code 4.0 - 15.0 mEq/L AO ADM SS Glucose [Mass/Vol] 85 mg/dL Invalid Interpretation Code 80 - 115 mg/dL AO ADM SS Potassium [Moles/Vol] 4.4 mmol/L Invalid Interpretation Code 3.5 - 5.1 mmol/L AO ADM SS Sodium [Moles/Vol] 141 mmol/L Invalid Interpretation Code 136 - 145 mmol/L AO ADM SS Urea nitrogen [Mass/Vol] 20 mg/dL Invalid Interpretation Code 7 - 18 mg/dL AO ADM SS Urea nitrogen/Creatinine [Mass ratio] 29 ratio Invalid Interpretation Code 7 - 27 ratio AO ADM SS LABORATORYOrdered By: Tanika Schneider on 06-15-2022 Basophil, Absolute 0.1 103/mcL Invalid Interpretation Code 0.0 - 0.2 10^3/mcL AO Workflow SS Basophils/100 WBC (Bld) 0.9 % Invalid Interpretation Code 0.0 - 2.5 % AO Workflow SS Eosinophil, Absolute 0.1 103/mcL Invalid Interpretation Code 0.0 - 0.4 10^3/mcL AO Workflow SS Eosinophils/100 WBC (Bld) 2.2 % Invalid Interpretation Code 0.0 - 7.0 % AO Workflow SS Erythrocyte distribution width (RBC) [Ratio] 14.9 % Invalid Interpretation Code 11.5 - 14.5 % AO Workflow SS Hematocrit (Bld) [Volume fraction] 38.7 % Invalid Interpretation Code 37.0 - 47.0 % AO Workflow SS Hemoglobin (Bld) [Mass/Vol] 13.0 G/dL Invalid Interpretation Code 12.0 - 16.0 G/dL AO Workflow SS Lymphocyte, Absolute 2.4 103/mcL Invalid Interpretation Code 0.8 - 3.9 10^3/mcL AO Workflow SS Lymphocytes/100 WBC (Bld) 38.9 % Invalid Interpretation Code 10.0 - 50.0 % AO Workflow SS MCH (RBC) [Entitic mass] 28.8 pg Invalid Interpretation Code 27.0 - 31.2 pg AO Workflow SS MCHC 33.5 G/dL Invalid Interpretation Code 33.0 - 37.0 G/dL AO Workflow SS MCV (RBC) [Entitic vol] 85.9 fL Invalid Interpretation Code 80.0 - 94.0 fL AO Workflow SS Monocyte, Absolute 0.5 103/mcL Invalid Interpretation Code 0.2 - 1.0 10^3/mcL AO Workflow SS Monocytes/100 WBC (Bld) 8.4 % Invalid Interpretation Code 1.7 - 13.0 % AO Workflow SS Neutrophil, Absolute 3.1 103/mcL Invalid Interpretation Code 2.9 - 6.2 10^3/mcL AO Workflow SS Neutrophils/100 WBC (Bld) 49.6 % Invalid Interpretation Code 37.0 - 80.0 % AO Workflow SS Platelet mean volume (Bld) [Entitic vol] 7.7 fL Invalid Interpretation Code 7.4 - 10.4 fL AO Workflow SS Platelets (Bld) [#/Vol] 241 103/mcL Invalid Interpretation Code 130 - 400 10^3/mcL AO Workflow SS RBC (Bld) [#/Vol] 4.51 106/mcL Invalid Interpretation Code 4.20 - 5.40 10^6/mcL AO Workflow SS WBC (Bld) [#/Vol] 6.2 103/mcL Invalid Interpretation Code 4.6 - 10.8 10^3/mcL AO Workflow SS LABORATORYOrdered By: SYSTEM SYSTEM on 06-15-2022 GFR 103 ml/min/1.73sqm Invalid Interpretation Code AO Chemistry S GFR Non- 85 ml/min/1.73sqm Invalid Interpretation Code AO Chemistry S LABORATORYOrdered By: Tanika Schneider on 01-07-2022 Albumin BCP dye [Mass/Vol] 3.3 G/dL Invalid Interpretation Code 3.4 - 4.8 G/dL AO ADM SS Calcium [Mass/Vol] 8.9 mg/dL Invalid Interpretation Code 8.4 - 10.2 mg/dL AO ADM SS Chloride [Moles/Vol] 102 mmol/L Invalid Interpretation Code 98 - 107 mmol/L AO ADM SS CO2 [Moles/Vol] 29 mmol/L Invalid Interpretation Code 23 - 31 mmol/L AO ADM SS Creatinine (U) [Mass/Vol] 133.3 mg/dL Invalid Interpretation Code 28.0 - 117.0 mg/dL AO ADM SS Creatinine [Mass/Vol] 0.75 mg/dL Invalid Interpretation Code 0.55 - 1.02 mg/dL AO ADM SS Electrolyte Balance 7.0 mEq/L Invalid Interpretation Code 4.0 - 15.0 mEq/L AO ADM SS Glucose [Mass/Vol] 99 mg/dL Invalid Interpretation Code 80 - 115 mg/dL AO ADM SS Phosphate [Mass/Vol] 3.5 mg/dL Invalid Interpretation Code 2.3 - 4.1 mg/dL AO ADM SS Potassium [Moles/Vol] 4.1 mmol/L Invalid Interpretation Code 3.5 - 5.1 mmol/L AO ADM SS Protein (U) [Mass/Vol] 68 mg/dL Invalid Interpretation Code 0 - 11 mg/dL AO ADM SS Sodium [Moles/Vol] 138 mmol/L Invalid Interpretation Code 136 - 145 mmol/L AO ADM SS U Ratio Prot/Creat 0.5 ratio Invalid Interpretation Code AO Chemistry S Urea nitrogen [Mass/Vol] 20 mg/dL Invalid Interpretation Code 7 - 18 mg/dL AO ADM SS Urea nitrogen/Creatinine [Mass ratio] 27 ratio Invalid Interpretation Code 7 - 27 ratio AO ADM SS Vit. D 25-Hydroxy 47.9 ng/mL Invalid Interpretation Code AO ADM SS LABORATORYOrdered By: Zaid Penn on 01-07-2022 Erythrocyte distribution width (RBC) [Ratio] 15.4 % Invalid Interpretation Code 11.5 - 14.5 % AO Workflow SS Hematocrit (Bld) [Volume fraction] 37.2 % Invalid Interpretation Code 37.0 - 47.0 % AO Workflow SS Hgb 12.4 G/dL Invalid Interpretation Code 12.0 - 16.0 G/dL AO Workflow SS MCH (RBC) [Entitic mass] 28.1 pg Invalid Interpretation Code 27.0 - 31.2 pg AO Workflow SS MCHC 33.3 G/dL Invalid Interpretation Code 33.0 - 37.0 G/dL AO Workflow SS MCV (RBC) [Entitic vol] 84.5 fL Invalid Interpretation Code 80.0 - 94.0 fL AO Workflow SS Platelet 251 103/mcL Invalid Interpretation Code 130 - 400 10^3/mcL AO Workflow SS Platelet mean volume (Bld) [Entitic vol] 8.3 fL Invalid Interpretation Code 7.4 - 10.4 fL AO Workflow SS RBC 4.40 106/mcL Invalid Interpretation Code 4.20 - 5.40 10^6/mcL AO Workflow SS WBC 7.1 103/mcL Invalid Interpretation Code 4.6 - 10.8 10^3/mcL AO Workflow SS LABORATORYOrdered By: SYSTEM SYSTEM on 01-07-2022 GFR 93 ml/min/1.73sqm Invalid Interpretation Code AO Chemistry S GFR Non- 77 ml/min/1.73sqm Invalid Interpretation Code AO Chemistry S Parathyrin.intact [Mass/Vol] 60.1 pg/mL Invalid Interpretation Code 18.5 - 88.0 pg/mL AH ADM SS LABORATORYOrdered By: [place] on 07-08-2021 Albumin BCP dye [Mass/Vol] 3.3 G/dL Invalid Interpretation Code 3.4 - 4.8 G/dL AO ADM SS Albumin/Globulin [Mass ratio] 0.9 {ratio} Invalid Interpretation Code 1.1 - 2.5 ratio AO ADM SS ALP [Catalytic activity/Vol] 61 U/L Invalid Interpretation Code 40 - 135 U/L AO ADM SS ALT With P-5'-P [Catalytic activity/Vol] 23 U/L Invalid Interpretation Code 14 - 59 U/L AO ADM SS AST With P-5'-P [Catalytic activity/Vol] 14 U/L Invalid Interpretation Code 10 - 40 U/L AO ADM SS Bilirubin [Mass/Vol] 0.3 mg/dL Invalid Interpretation Code 0.2 - 1.0 mg/dL AO ADM SS Calcium [Mass/Vol] 8.7 mg/dL Invalid Interpretation Code 8.4 - 10.2 mg/dL AO ADM SS Chloride [Moles/Vol] 105 mmol/L Invalid Interpretation Code 98 - 107 mmol/L AO ADM SS Cholesterol [Mass/Vol] 208 mg/dL Invalid Interpretation Code 0 - 200 mg/dL AO ADM SS Cholesterol in HDL [Mass/Vol] 59 mg/dL Invalid Interpretation Code 40 - 60 mg/dL AO ADM SS Cholesterol in LDL [Mass/Vol] 136 mg/dL Invalid Interpretation Code 0 - 130 mg/dL AO ADM SS CO2 [Moles/Vol] 28 mmol/L Invalid Interpretation Code 23 - 31 mmol/L AO ADM SS Creatinine [Mass/Vol] 0.72 mg/dL Invalid Interpretation Code 0.55 - 1.02 mg/dL AO ADM SS Electrolyte Balance 9.0 mEq/L Invalid Interpretation Code AO ADM SS Globulin 3.5 G/dL Invalid Interpretation Code AO ADM SS Glucose [Mass/Vol] 96 mg/dL Invalid Interpretation Code 80 - 115 mg/dL AO ADM SS Potassium [Moles/Vol] 4.7 mmol/L Invalid Interpretation Code 3.5 - 5.1 mmol/L AO ADM SS Protein [Mass/Vol] 6.8 G/dL Invalid Interpretation Code 6.4 - 8.2 G/dL AO ADM SS Sodium [Moles/Vol] 142 mmol/L Invalid Interpretation Code 136 - 145 mmol/L AO ADM SS Triglyceride [Mass/Vol] 65 mg/dL Invalid Interpretation Code 0 - 150 mg/dL AO ADM SS TSH Qn 1.54 m[IU]/L Invalid Interpretation Code 0.36 - 3.74 mcIU/mL AO ADM SS Urea nitrogen [Mass/Vol] 20 mg/dL Invalid Interpretation Code 7 - 18 mg/dL AO ADM SS Urea nitrogen/Creatinine [Mass ratio] 28 ratio Invalid Interpretation Code 7 - 27 ratio AO ADM SS Vit. D 25-Hydroxy 46.4 ng/mL Invalid Interpretation Code AO ADM SS LABORATORYOrdered By: SYSTEM SYSTEM on 07-08-2021 GFR 98 ml/min/1.73sqm Invalid Interpretation Code AO Chemistry S GFR Non- 81 ml/min/1.73sqm Invalid Interpretation Code AO Chemistry S MSCon 05-14-2017 [facility] REPORT Normal [facility] DATE OF SERVICE: 05/14/2017REASON OF VISIT: Right ear pain.HISTORY OF PRESENT ILLNESS: This is a 62-year-old female who presented with rightear pain for the last 2 days. No cough, congestion, no sore throat. No fever orchills. The pain sometimes comes down to her jaw. The patient stated that she hashad infection in the past. Denied using any Q-tips.REVIEW OF SYSTEMS: Review of all other systems are normal.PAST MEDICAL HISTORY, FAMILY HISTORY, SOCIAL HISTORY: Reviewed.ALLERGIES: NKA.MEDICATIONS: Lisinopril.PHYSICAL EXAMINATION:General: She is awake, alert, not in distress. No dyspnea.Vital Signs: Temperature 98.1, blood pressure 120/70, pulse 88, respirations 16,pulse oximetry 96% on room air. Pain score 3/10.HEENT: Reveals throat not injected. No nasal congestion. Ear canal was clean. Nowax or any inflammation in the ear canal. Ear drum was normal. There was no sign ofinflammation or infection of the ear drum and it was not bulging. At the externalmeatus, motion of the ear lobe is not painful. Left ear was normal.Chest: Clear to auscultate.Heart: Regular rate and rhythm.ASSESSMENT: Right ear pain.PLAN: Clinical findings were discussed with the patient in detail. I explained toher that her ear examination is normal right now. I do not see any sign ofinflammation or infection in the ear. Ear canals are also clean. No specifictreatment needed right now. If there is any change in her symptoms, she should berechecked. She can take epik-hjn-zyvcjwu pain medicine as needed and [facility]. The patient understands and agrees.Her questions were answered to her satisfaction. PILLO Gan/[id number]: 05/14/2017 11:55DT: 05/14/2017 23:22SSI File#: [id number] ob #: [id number] d by [facility] PATIENT NAME: GABRIELE CUEVAS L[address]Ramiro Shi Jaramillo MEDICAL REC #: [id number], [place] [address] [place] [facility] [id number]/22/18 1635 PAWPR *[facility] PATIENT NAME: GABRIELE CUEVAS Shi Jaramillo MEDICAL REC #: [id number], [place] [address] [place] [facility] PHYSICIAN Normal [facility] [place] Vital Signs Date Time Vital Sign Value Performing Clinician Sathish messer 05-16-2022 00:10-0400 Diastolic blood pressure 74 mm[Hg] DR DALIA RAMIREZ DO [facility] 05-16-2022 00:10-0400 Heart rate 74 /min DR DALIA RAMIREZ DO [facility] 05-16-2022 00:10-0400 Mean blood pressure 95 mm[Hg] DR DALIA RAMIREZ DO [facility] 05-16-2022 00:10-0400 Respiratory rate 18 /min DR DALIA RAMIREZ DO [facility] 05-16-2022 00:10-0400 Systolic blood pressure 136 mm[Hg] DR DALIA RAMIREZ DO [facility] 05-15-2022 23:18-0400 Body temperature 98.06 [degF] DR DALIA RAMIREZ DO [facility] 05-15-2022 23:18-0400 Diastolic blood pressure 90 mm[Hg] DR DALIA RAMIREZ DO [facility] 05-15-2022 23:18-0400 Heart rate 78 /min DR DALIA RAMIREZ DO [facility] 05-15-2022 23:18-0400 Mean blood pressure 119 mm[Hg] DR DALIA RAMIREZ DO [facility] 05-15-2022 23:18-0400 Respiratory rate 18 /min DR DALIA RAMIREZ DO [facility] 05-15-2022 23:18-0400 Systolic blood pressure 178 mm[Hg] DR DALIA RAMIREZ DO [facility] Encounters Encounter Date Encounter Type Care Provider Facility Start: 04-09-2024 End: 04-09-2024 ambulatory CIRA MAHENDRA LIN Facility:B Start: 04-09-2024 End: 04-09-2024 Patient encounter procedure ANDRES JOHNSON MD [facility] Start: 02-23-[address] JEREMIAH Tarango acility:B Start: 01-05-2024 End: 01-05-2024 ambulatory CIRA MCCRAY DO Facility:B Start: 09-06-2023 End: 09-06-2023 ambulatory CIRA MAHENDRA DO Facility:B Start: 04-08-2023 End: 04-08-2023 Patient encounter procedure YOVANNY LUQUE MD [facility] Start: 01-13-2023 End: 01-13-[address] BILL BUCKLEY MD [facility] Start: 12-24-2022 ambulatory Oswaldo Tanner MA [facility] Comment on above: Population Health Na vigation Outreach (ACO No PCP list) Start: 09-10-2022 End: 09-10-2022 Patient encounter procedure CIRA MCCRAY DO [facility] Start: 08-17-2022 End: 08-17-2022 Patient encounter procedure CIRA MCCRAY DO [facility] Start: 06-28-2022 End: 07-27-2022 Admission to same day surgery center JOSÉ LUIS PATEL PA-C [facility] Start: 06-15-2022 End: 06-15-2022 Patient encounter procedure JOSÉ LUIS BROTHERSDistractify [facility] Start: 06-11-2022 End: 06-11-[address] JEREMIAH WILLS MD [facility] Start: 05-15-2022 End: 05-16-2022 Emergency department patient visit DR DALIA RAMIREZ DO [facility] Start: 04-07-2022 End: 04-07-2022 Patient encounter procedure YOVANNY LUQUE MD [facility] Start: 01-07-2022 End: 01-07-[address] BILL BUCKLEY MD [facility] Start: 12-16-2021 End: 12-20-2021 Outreach Lab DANIEL LUGO MD [facility] Start: 07-08-2021 End: 07-08-2021 Patient encounter procedure CIRA MCCRAY DO [facility] Start: 05-14-2017 Ambulatory Pratheep Pawa Facility: [facility] Procedures Date Procedure Procedure Detail Performing Clinician Start: 05-15-2019 Arthroplasty of knee JOHN NAJERA MAHENDRA DO Comment on above: LEFT ROBOTIC ASSISTE D TKA Arthroplasty of knee DANIEL LUGO MD Arthroplasty of knee ANDRES JOHNSON MD Comment on above: right knee Colonoscopy CIRA MAHENDRA DO Mammoplasty CIRA MAHENDRA LIN Comment on above: right breast Mastectomy of right breast K LITA MAHENDRA DO Oophorectomy CIRA MAHENDRA DO Comment on above: right Right salpingectomy Specimen from breast obtained by biopsy (specimen) CIRA MAHENDRA LIN Comment on above: bilat. [facility] Plan of Treatment Date Care Activity Detail Author Start: 08-15-2022 ADVANCE DIRECTIVE DISCUSSION ADVANCE DIRECTIVE DISCUSSION [facility] Start: 08-15-2022 DEPRESSION ASSESSMENT DEPRESSION ASS ESSMENT [facility] Start: 09-07-2021 COVID-19 VACCINE (4 - Booster for Moderna series) COVID-19 VACCINE (4 - Booster for Moderna series) [facility] Start: 2019 BONE DENSITY BONE DENSITY [facility] Start: 2019 PNEUMOCOCCAL: 65+ (1 - PCV) PNEUMOCOCCAL: 65+ (1 - PCV) [facility] Start: 2004 SHINGRIX VACCINE (1 of 2) SHINGRIX V ACCINE (1 of 2) [facility] Start: 1999 COLOGUARD (FIT-DNA) COLOGUARD (FIT-D NA) [facility] Start: [address] [facility] Start: 1999 COLORECTAL CANCER SCREENING COLORECTAL CANCER SCREENING [facility] Start: [address] COLONOGRAPHY [facility] Start: 1999 DIABETES SCREEN DIABETES SCREEN [facility] Start: 1999 FECAL OCCULT BLOOD FECAL OCCULT BLOO D [facility] Start: 1999 LIPID SCREEN LIPID SCREEN [facility] Start: 1999 SIGMOIDOSCOPY SIGMOIDOSCOPY [facility] Start: [address] [facility] Start: 1973 Urine microalbumin profile DTAP,TDAP ,TD (1 - Tdap) [facility] Start: 1972 ANNUAL PCP TEAM WIPER BLENDER PRAVIN DISEASE VISIT ANNUAL PCP TEAM CHRONIC DISEASE VISIT [facility] Start: 1972 BP CONTROLLED (<130/80) BP CONTROLLE D (<130/80) [facility] Start: 1972 HEPATITIS C SCREENING HEPATITIS C SC REENING [facility] Immunizations Immunization Date Immunization Notes Care Provider Fa cili 08-11-2023 zoster vaccine recombinant ANDRES JOHNSON MD [facility] 06-09-2023 influenza, high dose seasonal, preservative-free; Translations: [Fluad Quadrivalent PF ] ANDRES JOHNSON MD [facility] 04-28-2023 zoster vaccine recombinant ANDRES JOHNSON MD [facility] 08-04-2022 Pneumococcal conjuga te PCV20, polysaccharide [id number] conjugate, adjuvant, PF; Translations: [Prevnar 20] CIRA MCCRAY DO [facility] 06-16-2022 influenza, high dose seasonal, preservative-free JOSÉ LUIS PATEL PA-C [facility] 07-13-2021 COVID-19, mRNA, LNP- S, PF, 100 mcg or 50 mcg dose; Translations: [Moderna COVID-19 Vaccine] DANIEL LUGO MD [facility] 06-26-2021 influenza, high dose seasonal, preservative-free; Translations: [Fluad Quadrivalent PF ] CIRA MCCRAY DO [facility] 11-06-2020 COVID-19, mRNA, LNP- S, PF, 100 mcg/ 0.5 mL dose; Translations: [Moderna COVID-19 Vaccine] CIRA MCCRAY DO [facility] 10-09-2020 COVID-19, mRNA, LNP- S, PF, 100 mcg/ 0.5 mL dose; Translations: [Moderna COVID-19 Vaccine] CIRA MCCRAY DO [facility] 06-27-2020 pneumococcal polysaccharide vaccine, 23 valent; Translations: [Pneumovax 23] CIRA MCCRAY DO [facility] 05-31-2020 influenza virus vacc ine, unspecified formulation CIRA MCCRAY DO [facility] 05-16-2019 Influenza, injectabl e, Madin [place] Canine Kidney, preservative free, quadrivalent; Translations: [Flucelvax PF Quadrivalent ] CIRA MCCRAY DO [facility] 06-04-2018 influenza virus vacc ine, unspecified formulation CIRA MCCRAY DO [facility] 05-25-2017 influenza virus vacc ine, unspecified formulation CIRA MCCRAY DO [facility] 05-29-2016 influenza virus vacc ine, unspecified formulation CIRA MCCRAY DO [facility] 05-15-2015 influenza virus vacc ine, unspecified formulation CIRA MCCRAY DO [facility] 05-15-2014 influenza virus vacc ine, unspecified formulation CIRA MCCRAY DO [facility] 01-07-2010 tetanus toxoid, redu marybel diphtheria toxoid, and acellular pertussis vaccine, adsorbed CIRA MAHENDRA DO [facility] 09-13-2006 pneumococcal polysaccharide vaccine, 23 valent CIRA MCCRAY DO [facility] Payers Date Payer Category Payer Medicare [id number] 2023 Unknown [id number] 2019 Unknown MMO MMO MEDICARE SUPPLEMENT [id number] 2019-Present [phone] [address] [place] [address] Indemnity [id number] 2012 Medicare MEDICARE MEDICAR E A AND B [id number] 2012-Present [phone] [address] [address] [place] [address] Medicare [id number] 1955 Unknown [id number] 1955 Unknown [id number] 1955 Unknown [id number] 1955 Unknown [id number] Medicare [id number] Social History Date Type Detail Facility Start: 06-26-2021 Never smoked t obacco (finding) [facility] Sex Assigned At Female [facility] Tobacco smoking status [facility] Tobacco smoking consumption unknown [facility] Start: 1955 Sex Assigned At Not on file C [facility] Functional Status Date Assessment Result Facility 06-28-2022 Functional Status OBJECTIVE BP: 125/71 Posture: forward head posture Gait: antalgic gait with SPC, limited knee extnesion Transfers: WNL Sensation: no abnormalties or asymmetries reported Reflexes: NT Edema: L 39cm, R 48cm - pt reports has swelling in RLE at baseline with medical testing showing no cause. no calf tenderness, no redness AROM: 26-99 PROM: 11-96 MMT: LLE 4+/5 grossly [facility] 05-15-2022 Functional Status ID band on, Call device within reach, Bed in low position, Wheels locked, Upper/Half-Length side-rails up, Phone within reach, personal items within reach, Safety level maintained [facility] Mental Status Date Assessment Result Facility 05-15-2022 Mental Status Oriented x 4 [facility] Clinical Notes 05-15-2022 to 04-08-2023 Oswaldo [place] Ma - 12/24/2022 1:17 PM EDTRadiologyRadiologyRadiology Note Date & Type Note Facility 04-08-2023 Note ORIGINAL FROM: [facility] [address] [address] PROCEDURE FOR: GABRIELE CUEVAS [address] [place] [address] Home: PID#: [id number] Exam#: [id number] : 1955 Age: 68 TO: YOVANNY LUQUE MD [address] [facility] [address] [place], [place] [address] EXAMINATION: SCREENING DIGITAL LEFT MAMMOGRAM WITH TOMOSYNTHESIS, 04/08/2023 10:21 am TECHNIQUE: Screening mammography of the left breast was performed with tomosynthesis. 2D standard and 3D tomosynthesis combination imaging performed through the left breast in the MLO and CC projection. Computer aided detection was utilized in the interpretation of this exam. COMPARISON: April 07, 2022, April 06, 2021 HISTORY: Breast cancer screening The patient is status post right mastectomy. FINDINGS: BREAST DENSITY: Heterogeneously dense The patient is status post right mastectomy. There are no significant masses or calcifications. IMPRESSION: No mammographic evidence of malignancy. Continued screening with annual mammograms is recommended. BIRADS: MAMMOGRAM BI-RADS: 1: Negative RECALL: 1 year screening RECALL TYPE: mammo LETTER SENT: Normal BI-RADS 1 and 2 Interpreted by: Goldie Haas Preliminary Report By: Goldie Haas Electronically signed By Goldie Haas Dictated Date: 04/08/2023 1:19:39 PM Prelim Date: 04/08/2023 1:21:50 PM Sign Date: 04/08/2023 1:21:50 PM Ordering Provider: YOVANNY LUQUE copy to: CIRA MCCRAY DO, ph: [phone], fax: NO FAX Attendant [employer]: KODI NORIEGA (Mildred)(M) letter sent: Normal BI-RADS 1 and 2 Mammogram BI-RADS: 1 Negative [facility] 12-24-2022 Note HNO ID: [id number] Author: Oswaldo Tanner Ma Service: ? Author Type: ? Type: Progress Notes Filed: 12/24/2022 1:25 PM Note Text: POPULATION HEALTH NAVIGATION OUTREACH Action/FYI Left message for patient to call back. Patient Identified by Name and : NO Outreach Outcome/Action Unable to reach patient: Left message Did you use a PCP flex slot to schedule this appointment? N/A Reason for Outreach Attribution: Consult to Primary Care Payer: Payor: MEDICARE / Plan: MEDICARE A AND B / Product Type: Medicare / Care Gap Reviewed:: Annual Wellness visit Controlling Blood Pressure Colorectal Cancer Screening Reminder: Reminder note to check Health Maintenance for items below Health Maintenance items due: ANNUAL PCP TEAM CHRONIC DISEASE VISIT Never done HEPATITIS C SCREENING Never done BP CONTROLLED (<130/80) Never done DTAP,TDAP,TD(1 - Tdap) Never done MAMMOGRAM Never done LIPID SCREEN Never done DIABETES SCREEN Never done COLORECTAL CANCER SCREENING Never done SHINGRIX VACCINE(1 of 2) Never done BONE DENSITY Never done PNEUMOCOCCAL: 65+(1 - PCV) Never done COVID-19 VACCINE(4 - Booster for Moderna series) due on 09/07/2021 ADVANCE DIRECTIVE DISCUSSION Never done DEPRESSION ASSESSMENT Never done Navigation Signature: Oswaldo Tanner Ma December 24, 2022 1:17 PM [facility] 12-24-2022 Note Patient Outreach (NE TNAV) GABRIELE CUEVAS ([id number]) 1955 F Date Time Provider Department 12/24/22 OSWALDO TANNER During your visit today, we recorded the following information about you: [facility] 12/24/2022 1:25 PM Signed POPULATION HEALTH NAVIGATION OUTREACH Action/ Left message for patient to call back. Patient Identified by Name and : NO Outreach Outcome/Action Unable to reach patient: Left message Did you use a PCP flex slot to schedule this appointment? N/A Reason for Outreach Attribution: Consult to Primary Care Payer: Payor: MEDICARE / Plan: MEDICARE A AND B / Product Type: Medicare / Care Gap Reviewed:: Annual Wellness visit Controlling Blood Pressure Colorectal Cancer Screening Reminder: Reminder note to check Health Maintenance for items below Health Maintenance items due: ANNUAL PCP TEAM CHRONIC DISEASE VISIT Never done HEPATITIS C SCREENING Never done BP CONTROLLED (<130/80) Never done DTAP,TDAP,TD(1 - Tdap) Never done MAMMOGRAM Never done LIPID SCREEN Never done DIABETES SCREEN Never done COLORECTAL CANCER SCREENING Never done SHINGRIX VACCINE(1 of 2) Never done BONE DENSITY Never done PNEUMOCOCCAL: 65+(1 - PCV) Never done COVID-19 VACCINE(4 - Booster for Moderna series) due on 09/07/2021 ADVANCE DIRECTIVE DISCUSSION Never done DEPRESSION ASSESSMENT Never done Navigation Signature: Oswaldo Tanner Ma December 24, 2022 1:17 PM Allergies As of Date: 12/24/2022 (No Known Allergies) Date Reviewed: 09/03/2020 Reviewed by: Nellie Ortiz - Fully Assessed Reason for Visit: Population Health Navigation Outreach [3910] Cmt: ACO No PCP list Prescriptions as of 12/28/2022 - methylPREDNISolone (MEDROL, MAISHA,) 4 mg Dose-Pack As instructed per package, please take with food - calcium phosphate dibas/vit D3 (VITAMIN D, WITH CALCIUM, ORAL) Take 1 capsule by mouth once daily. - lisinopril (ZESTRIL, PRINIVIL) 10 mg tablet Take 10 mg by mouth once daily. Problem List As Of Date 12/24/2022 Noted Resolved History of malignant neoplasm of breast [Z85.3] 01/22/2020 Hypertension [I10] 01/22/2020 Vitamin D deficiency [E55.9] 01/22/2020 Encounter Status:Closed by OSWALDO TANNER MA on 12/24/22 [facility] 12-24-2022 History of Present illness Narrative POPULATION HEALTH NAVIGATION OUTREACH Action/FYI Left message for patient to call back. Patient Identified by Name and : NO Outreach Outcome/Action Unable to reach patient: Left message Did you use a PCP flex slot to schedule this appointment? N/A Reason for Outreach Attribution: Consult to Primary Care Payer: Payor: MEDICARE / Plan: MEDICARE A AND B / Product Type: Medicare / Care Gap Reviewed:: Annual Wellness visit Controlling Blood Pressure Colorectal Cancer Screening Reminder: Reminder note to check Health Maintenance for items below Health Maintenance items due: ANNUAL PCP TEAM CHRONIC DISEASE VISIT Never done HEPATITIS C SCREENING Never done BP CONTROLLED (<130/80) Never done DTAP,TDAP,TD(1 - Tdap) Never done MAMMOGRAM Never done LIPID SCREEN Never done DIABETES SCREEN Never done COLORECTAL CANCER SCREENING Never done SHINGRIX VACCINE(1 of 2) Never done BONE DENSITY Never done PNEUMOCOCCAL: 65+(1 - PCV) Never done COVID-19 VACCINE(4 - Booster for Moderna series) due on 09/07/2021 ADVANCE DIRECTIVE DISCUSSION Never done DEPRESSION ASSESSMENT Never done Navigation Signature: Oswaldo Tanner Ma December 24, 2022 1:17 PM documented in this encounter [facility] 09-10-2022 Note ORIGINAL EXAMINATION: BONE DENSITOMETRY 09/10/2022 1:23 pm TECHNIQUE: A bone density dual x-ray absorptiometry (DEXA) scan was performed of the lumbar spine and left hip. COMPARISON: 09/18/2019. HISTORY: ORDERING SYSTEM PROVIDED HISTORY: Reason for Exam: Osteoporosis Screening FINDINGS: T Score Left Femoral Neck: -3.0 Left Femoral Neck: 0.517 (g/cm2) T Score Left Hip: -2.3 Left Hip: 0.656 (g/cm2) T Score Lumbar Spine: -1.7 Lumbar Spine: 0.862 (g/cmd2) BMD change from previous lumbar Spine: 6.7%. BMD change from previous hip: No significant change. IMPRESSION: Osteoporosis by WHO criteria. *By the World Health Organization criteria: (Comparing with young normal sex matched population) - Normal: T-score at or above -1 SD (standard deviation) - Osteopenia: T-score between -1 and -2.5 SD - Osteoporosis: T-score at or below -2.5 SD Interpreted by: Anderson House DO Preliminary Report By: Anderson House DO Electronically signed By Anderson House DO Dictated Date: 09/10/2022 1:43:40 PM Prelim Date: 09/10/2022 1:47:07 PM Sign Date: 09/10/2022 1:47:07 PM Ordering Provider: CIRA MCCRAY [facility] 09-10-2022 Note ORIGINAL EXAMINATION: BONE DENSITOMETRY 09/10/2022 1:23 pm TECHNIQUE: A bone density dual x-ray absorptiometry (DEXA) scan was performed of the lumbar spine and left hip. COMPARISON: 09/18/2019. HISTORY: ORDERING SYSTEM PROVIDED HISTORY: Reason for Exam: Osteoporosis Screening FINDINGS: T Score Left Femoral Neck: -3.0 Left Femoral Neck: 0.517 (g/cm2) T Score Left Hip: -2.3 Left Hip: 0.656 (g/cm2) T Score Lumbar Spine: -1.7 Lumbar Spine: 0.862 (g/cmd2) BMD change from previous lumbar Spine: 6.7%. BMD change from previous hip: No significant change. IMPRESSION: Osteoporosis by WHO criteria. *By the World Health Organization criteria: (Comparing with young normal sex matched population) - Normal: T-score at or above -1 SD (standard deviation) - Osteopenia: T-score between -1 and -2.5 SD - Osteoporosis: T-score at or below -2.5 SD Interpreted by: Anderson House DO Preliminary Report By: Anderson House DO Electronically signed By Anderson House DO Dictated Date: 09/10/2022 1:43:40 PM Prelim Date: 09/10/2022 1:47:07 PM Sign Date: 09/10/2022 1:47:07 PM Ordering Provider: CIRA MCCRAY [facility] 06-11-2022 Note ORIGINAL EXAMINATION: CT OF THE RIGHT KNEE WITHOUT CONTRAST 06/11/2022 2:53 pm TECHNIQUE: CT of the right knee was performed without the administration of intravenous contrast. Multiplanar reformatted images are provided for review. Automated exposure control, iterative reconstruction, and/or weight based adjustment of the mA/kV was utilized to reduce the radiation dose to as low as reasonably achievable. COMPARISON: Right knee radiographs 05/15/2022. HISTORY ORDERING SYSTEM PROVIDED HISTORY: Reason for Exam: UNILATERAL PRIMARY OSTEOARTHRITIS, RIGHT KNEE. FINDINGS: No visible acute fracture or dislocation. Osseous mineralization is within normal limits. No visible aggressive osseous lesions. Moderate to severe tricompartmental joint space narrowing is noted with marginal osteophytes. Moderate volume effusion. Multiple intracapsular osteochondral bodies are noted. Largest intracapsular osteochondral body of the suprapatellar recess measures 2.3 cm. Largest infrapatellar intracapsular osteochondral body measures 1.4 cm. Additional smaller intracapsular osteochondral bodies posteriorly and of the suprapatellar recess are demonstrated. No significant volume of fluid is evident of a popliteal cyst. Visible tendons appear grossly intact. Ligaments are poorly evaluated on this examination. Provided images of the right hip and right hemipelvis exhibit no acute osseous abnormalities or aggressive osseous lesions. At least mild to moderate hip degenerative changes. No acute process is noted of the included intrapelvic structures. Provided images of the ankle exhibit no acute osseous abnormalities or aggressive osseous lesions. IMPRESSION: 1. No acute osseous abnormalities or aggressive osseous lesions. 2. Tricompartmental osteoarthrosis. Moderate volume effusion. Multiple sizable intracapsular osteochondral bodies. Interpreted by: Roly Weiner DO Preliminary Report By: Roly Weiner DO Electronically signed By Roly Weiner DO Dictated Date: 06/11/2022 4:14:27 PM Prelim Date: 06/11/2022 4:18:07 PM Sign Date: 06/11/2022 4:18:07 PM Ordering Provider: JEREMIAH WILLS [facility] 06-11-2022 Note ORIGINAL EXAMINATION: CT OF THE RIGHT KNEE WITHOUT CONTRAST 06/11/2022 2:53 pm TECHNIQUE: CT of the right knee was performed without the administration of intravenous contrast. Multiplanar reformatted images are provided for review. Automated exposure control, iterative reconstruction, and/or weight based adjustment of the mA/kV was utilized to reduce the radiation dose to as low as reasonably achievable. COMPARISON: Right knee radiographs 05/15/2022. HISTORY ORDERING SYSTEM PROVIDED HISTORY: Reason for Exam: UNILATERAL PRIMARY OSTEOARTHRITIS, RIGHT KNEE. FINDINGS: No visible acute fracture or dislocation. Osseous mineralization is within normal limits. No visible aggressive osseous lesions. Moderate to severe tricompartmental joint space narrowing is noted with marginal osteophytes. Moderate volume effusion. Multiple intracapsular osteochondral bodies are noted. Largest intracapsular osteochondral body of the suprapatellar recess measures 2.3 cm. Largest infrapatellar intracapsular osteochondral body measures 1.4 cm. Additional smaller intracapsular osteochondral bodies posteriorly and of the suprapatellar recess are demonstrated. No significant volume of fluid is evident of a popliteal cyst. Visible tendons appear grossly intact. Ligaments are poorly evaluated on this examination. Provided images of the right hip and right hemipelvis exhibit no acute osseous abnormalities or aggressive osseous lesions. At least mild to moderate hip degenerative changes. No acute process is noted of the included intrapelvic structures. Provided images of the ankle exhibit no acute osseous abnormalities or aggressive osseous lesions. IMPRESSION: 1. No acute osseous abnormalities or aggressive osseous lesions. 2. Tricompartmental osteoarthrosis. Moderate volume effusion. Multiple sizable intracapsular osteochondral bodies. Interpreted by: Roly Weiner DO Preliminary Report By: Roly Weiner DO Electronically signed By Roly Weiner DO Dictated Date: 06/11/2022 4:14:27 PM Prelim Date: 06/11/2022 4:18:07 PM Sign Date: 06/11/2022 4:18:07 PM Ordering Provider: JEREMIAH WILLS [facility] 05-16-2022 Hospital Discharge instructions Patient Education 05/15/2022 23:59:28 R.I.C.E. RICE RICE stands for rest, ice, compression, and elevation. Doing these things helps limit pain and swelling after an injury. RICE also helps injuries heal faster. Use RICE for sprains, strains, and severe bruises or bumps. Follow the tips on this handout and begin RICE as soon as possible after an injury. Rest Pain is your body s way of telling you to rest an injured area. Whether you have hurt an elbow, hand, foot, or knee, limiting its use will prevent further injury and help you heal. Ice Applying ice right after an injury helps prevent swelling and reduce pain. Don t place ice directly on your skin. Wrap a cold pack or bag of ice in a thin cloth. Place it over the injured area. Ice for 10 minutes every 3 hours. Don t ice for more than 20 minutes at a time. Compression Putting pressure (compression) on an injury helps prevent swelling and provides support. Wrap the injured area firmly with an elastic bandage. If your hand or foot tingles, becomes discolored, or feels cold to the touch, the bandage may be too tight. Rewrap it more loosely. If your bandage becomes too loose, rewrap it. Do not wear an elastic bandage overnight. Elevation Keeping an injury elevated helps reduce swelling, pain, and throbbing. Elevation is most effective when the injury is kept elevated higher than the heart. Call your healthcare provider if you notice any of the following: Fingers or toes feel numb, are cold to the touch, or change color. Skin looks shiny or tight. Pain, swelling, or bruising worsens and is not improved with elevation. [id number] [employer]. [address] [place] [address]. All rights reserved. This information is not intended as a substitute for professional medical care. Always follow your healthcare professional's instructions. Follow Up Care 05/15/2022 23:12:44 With:JEREMIAH WILLS MD Address: [address] [place] [address] [employer] [facility] [place] [address] [phone] When:2-4 days [facility] 05-16-2022 Note Discharge Instructions Thank you for allowing [facility] to assist you with your healthcare needs. The following is important discharge information regarding your hospital visit. Diagnosis from Today's Visit Knee pain-swelling What to Do Next Instructions from Your Care Team No qualifying data available. Post Acute Orders No qualifying data available. You Need to Schedule the Following Appointments Follow Up with JEREMIAH WILLS MD When Within 2-4 days Where: [address] [place] [address] [facility] [place] [address]- [phone] Allergies NKA Medications Please ask your primary doctor or pharmacist before taking any other medication not listed, including over the counter drugs, herbal medications, vitamins and or supplements as they may interact with your home medications. What How Much When Why Instructions Last Dose Unchanged alendronate (Fosamax 70 mg oral tablet) 1 tab(s) by mouth Every week Osteopenia Unchanged calcium-vitamin D (calcium (as carbonate)-vitamin D 500 mg-3.125 mcg (125 intl units) oral tablet) 1 tab(s) by mouth Once a day Unchanged lisinopril (lisinopril 10 mg oral tablet) TAKE 1 TABLET BY MOUTH EVERY DAY Unchanged TNF-Med (TRIMOSAN) 0.5gm Vaginal Twice a week Well woman exam Uterovaginal prolapse, incomplete Postmenopausal bleeding Cystocele, midline Cystocele, lateral Rectocele Duration: 1 years Please take this list to your next doctor s visit. Bring all medications you take, including over the counter medications, herbals and other supplements with you to your doctor s visit. Patients and families are reminded to discard old lists and to update any records with all medication providers or retail pharmacies. Education Materials RICE RICE stands for rest, ice, compression, and elevation. Doing these things helps limit pain and swelling after an injury. RICE also helps injuries heal faster. Use RICE for sprains, strains, and severe bruises or bumps. Follow the tips on this handout and begin RICE as soon as possible after an injury. Rest Pain is your body s way of telling you to rest an injured area. Whether you have hurt an elbow, hand, foot, or knee, limiting its use will prevent further injury and help you heal. Ice Applying ice right after an injury helps prevent swelling and reduce pain. Don t place ice directly on your skin. Wrap a cold pack or bag of ice in a thin cloth. Place it over the injured area. Ice for 10 minutes every 3 hours. Don t ice for more than 20 minutes at a time. Compression Putting pressure (compression) on an injury helps prevent swelling and provides support. Wrap the injured area firmly with an elastic bandage. If your hand or foot tingles, becomes discolored, or feels cold to the touch, the bandage may be too tight. Rewrap it more loosely. If your bandage becomes too loose, rewrap it. Do not wear an elastic bandage overnight. Elevation Keeping an injury elevated helps reduce swelling, pain, and throbbing. Elevation is most effective when the injury is kept elevated higher than the heart. Call your healthcare provider if you notice any of the following: Fingers or toes feel numb, are cold to the touch, or change color. Skin looks shiny or tight. Pain, swelling, or bruising worsens and is not improved with elevation. [id number] [employer] [address] [facility], [place] [address]. All rights reserved. This information is not intended as a substitute for professional medical care. Always follow your healthcare professional's instructions. Additional Information VACCINATE! IT SAVES LIVES! Members of the community who have not yet received the COVID-19 vaccine and would like to receive it can visit one of [facility] vaccine clinics. There are many vaccine clinic locations within the [facility]. For locations and available times, please visit [email or web address]. It is important to note that some COVID mobile vaccine clinics are held outdoors and may be canceled in rainy or stormy conditions. To learn more about pediatric vaccinations (ages 5-11), we invite you to visit the [employer] webpage. https://www.[employer].org/pa ges/5393-Otrba-Masowdkrimj-Freque pdvv-Urico-Ibqxsikps.html To learn more about the COVID-19 vaccine, we invite you to visit the [employer] website for a list of frequently asked questions. [email or web address]-[email or web address]-Jhfhlmi-Bxs quently_[email or web address]-Questions.pdf [facility] [employer] Patient Portal Access Instructions: Stay connected with your healthcare team and access your personal medical information anytime with the [employer] Patient Portal. If you would like a full copy of your medical records please contact the [facility] Medical Records Department Tuesday through Tuesday between 8a.m. and 4:30p.m. Please follow the directions below to access the portal: 1.Access the email account you provided upon registration to the hospital.2.Look for an invitation email from [facility].3.Open the email and access the invitation link: Accept Invitation to [facility]4.Fill in the required arciniega to create your account. Sign into [email or web address].[employer] with your username and password that you created in the above steps to stay up to date. You can then view a summary of results, a summary of your visits, and the ability to download your summaries to your computer or send the information securely to a physician. Remember that your healthcare information is confidential, so carefully consider who you will allow to register on the [employer] [employer] Patient Portal for access to your information. You can also access the [employer] Patient Portal on the [employer] anthony. Simply click on Health Records under Health Data and then click on the [employer] logo. HOW TO SAFELY DISPOSE OF PRESCRIPTION MEDICATIONS Please use one of the following methods to safely dispose of your unused medications. 1.Use a drug disposal kit: the drug disposal pouch allows you to safely discard your old and unused drugs. Ask your nurse to give you one when you are discharged.2.Visit a local take-back location: Many local pharmacies and police departments have programs that collect old and unwanted prescription drugs. Call your local pharmacy or go to http://[employer].Hint Inc/7U0Ff5v to find one close to you.3.Make use of household items: Use cat litter or old coffee grounds to dispose medications if other options are not available. Mix your drugs with these household products, seal them in an airtight container and throw it into the garbage. Call [facility]: [phone] to be sure your drugs can be disposed of in this way. Some medicines may require a different approach.4.Never flush your medications down the toilet. IF YOU HAVE BEEN PRESCRIBED AN OPIOIDS FOR PAIN If you have been prescribed an opioid (such as hydrocodone, oxycodone or morphine), it is critical to understand the possible side effects and risks of opioid pain medications. Even when taken as directed, opioids can have several side effects including: Tolerance, meaning you might need to take more of a medication for the same pain relief. Nausea, vomiting and/or constipation. Sleepiness, dizziness, dry mouth, confusion, depression or itching. Physical dependence, meaning you have withdrawal symptoms when a medication is stopped ? this can develop within a few days. KNOW YOUR RESPONSIBILITIES It is important to know exactly how much and how often to take the opioid pain medications you are prescribed. Never take opioids in higher amounts or more often than prescribed. Do not combine opioids with alcohol or other drugs that cause drowsiness, such as benzodiazepines, also known as benzos, including diazepam and alprazolam, muscle relaxants or sleep aids. Never sell or share prescription opioids. This is illegal. Store opioids in a secure place and out of reach of others (including children, family, friends and visitors). The last page(s) of this document has been signed and retained as a CHART COPY Signatures Patient Education Materials R.I.C.E. Medication Leaflets My discharge plan and instructions have been reviewed and explained to me and IMASON VALERIE L understand my current condition and have read and understand these discharge instructions. I have received a written copy of the plan/instructions. If I have questions, I am aware that I should contact my doctor. Patient/Photo Intern Signature: Date/Time: Relationship to Patient: ____ Witness Name/Signature: Date/Time: [facility] 05-15-2022 Note ORIGINAL EXAMINATION: THREE XRAY VIEWS OF THE RIGHT KNEE 05/15/2022 11:50 pm COMPARISON: None. HISTORY: ORDERING SYSTEM PROVIDED HISTORY: Reason for Exam: pain FINDINGS: No fracture or dislocation. Small joint effusion. No radiopaque foreign body. Severe medial, moderate lateral and moderate patellofemoral joint space narrowing with osteophytic change. Multiple lobular calcified bodies around the joint space, favoring secondary osteochondromatosis. IMPRESSION: Degenerative changes of the knee as above. Interpreted by: Deondre Carter Preliminary Report By: Deondre Carter Electronically signed By Deondre Carter Dictated Date: 05/15/2022 11:51:00 PM Prelim Date: 05/15/2022 11:52:32 PM Sign Date: 05/15/2022 11:52:32 PM Ordering Provider: DALIA RAMIREZ [facility] 05-15-2022 Note ORIGINAL EXAMINATION: THREE XRAY VIEWS OF THE RIGHT KNEE 05/15/2022 11:50 pm COMPARISON: None. HISTORY: ORDERING SYSTEM PROVIDED HISTORY: Reason for Exam: pain FINDINGS: No fracture or dislocation. Small joint effusion. No radiopaque foreign body. Severe medial, moderate lateral and moderate patellofemoral joint space narrowing with osteophytic change. Multiple lobular calcified bodies around the joint space, favoring secondary osteochondromatosis. IMPRESSION: Degenerative changes of the knee as above. Interpreted by: Deondre Carter Preliminary Report By: Deondre Carter Electronically signed By Deondre Carter Dictated Date: 05/15/2022 11:51:00 PM Prelim Date: 05/15/2022 11:52:32 PM Sign Date: 05/15/2022 11:52:32 PM Ordering Provider: DALIA RAMIREZ [facility] Evaluation + Plan note Future Appointments Appointment Date:07/13/2021 11:30:00 AM Scheduled Provider: Location:[facility] Appointment Type:COVID AMB VACCINE Future Scheduled TestsXR Chest 2 Views (PA & Lateral) 09/23/20 [facility] Evaluation + Plan note Future Appointments Appointment Date:06/16/2022 01:30:00 PM Scheduled Provider:CIRA MCCRAY DO Location:[facility] Appointment Type:PC OV Pre Op Appointment Date:06/28/2022 10:30:00 AM Scheduled Provider: Location:[facility] Appointment Type:PT Outpatient Evaluation [facility] Evaluation + Plan note Future Appointments Appointment Date:08/04/2022 10:00:00 AM Scheduled Provider:CIRA MCCRAY DO Location:[facility] Appointment Type:PC Wellness Medicare [facility] Evaluation + Plan note Future Appointments Appointment Date:09/06/2022 10:30:00 AM Scheduled Provider: Location:[facility] Appointment Type:BD Bone Density DEXA Axial Skeleton Future Scheduled TestsBD Bone Density DEXA Axial Skeleton 09/06/22 [facility] Evaluation + Plan note Future Appointments Appointment Date:09/04/2024 09:00:00 AM Scheduled Provider:CIRA MCCRAY DO Location:[facility] Appointment Type:PC Wellness Medicare Future Scheduled TestsMA Mammo Screening Bilateral w/ José 04/01/24 [facility] Hospital course Narrative No data available for this section [facility] Hospital Discharge instructions No data available for this section [facility] Progress note No data available for this section [facility] Summary Purpose Family History No Family History Records FoundNo Family History Records Found No data available for this section No data available for this section No Family History Records Found Advance Directives No Advanced Directives Records FoundNo Advanced Directives Records FoundNo Advanced Directives Records Found Additional Source Comments INFORMATION SOURCE (unrecogn ized section and content) DATE CREATED AUTHOR 02/16/2018 [facility] DATE CREATED AUTHOR AUTHOR'S ORGANIZ ATION 12/29/2022 [facility] DATE CREATED AUTHOR AUTHOR'S ORGANIZ ATION 04/13/2024 [facility] ([place]) Care Team (unrecognized sect ion and content) Personnel Name: CIRA MCCRAY DO Address: [address] [place] [address] Name: Nieves Guerra Clerk Aisha PT Personnel Name: CIRA MCCRAY DO Address: [address] [place] [address] Name: Nieves Guerra Clerhumble Leonard PT Care Team Personnel Name: Nieves Guerra Clejarod Leonard PT Position: P3 Scheduling - Automobile Mechanic Assistant Advanced Member Role: Other Name: BILL BUCKLEY MD Member Role: Steam Engineer Address: Address: [facility] [address] [facility] [address] Name: DANIEL LUGO MD Position: P4 BURNISHER AND BUMPER Provider Member Role: OBGYN Address: Address: [address] [place] [address] [address] Name: CIRA MCCRAY DO Position: P4 Physician - Primary Care Member Role: Primary Care Physician Address: Address: [address] [place] [address] Name: YOVANNY LUQUE MD Member Role: Oncologist Address: Address: [address] Name: JEREMIAH WILLS MD Position: P3 Physician - Orthopedics Member Role: Orthopaedist Address: Address: [address] [place] [address] [address] [facility] [place] [id number]- Care Team Related Persons Name: CHRISTOS CUEVAS Address: Home [address] [place], [place] [phone] [place] Name: CALE RODRIGUEZ Care Team Personnel Name: Nieves Guerra Clerk Aisha PT Position: P3 Scheduling - Automobile Mechanic Assistant Advanced Member Role: Other Name: BILL BUCKLEY MD Member Role: Steam Engineer Address: Address: [facility] [address] [facility] [place] [address]- Name: DANIEL LUGO MD Position: P4 BURNISHER AND BUMPER Provider Member Role: OBGYN Address: Address: [address] [place] [address]- Name: CIRA MCCRAY DO Position: P4 Physician - Primary Care Member Role: Primary Care Physician Address: Address: [address] [place] [address]- Name: YOVANNY LUQUE MD Member Role: Oncologist Address: Address: [address] [place] [address]- Name: JEREMIAH WILLS MD Position: P3 Physician - Orthopedics Member Role: Orthopaedist Address: Address: [address] [place] [address] [facility] [place] [address]- Care Team Related Persons Name: CHRISTOS CUEVAS Address: Home [address] [place], [place] [phone] Name: CALE RODRIGUEZ Care Team Personnel Name: Nieves Guerra Clerhumble Leonard PT Position: P3 Scheduling - Automobile Mechanic Assistant Advanced Member Role: Other Name: BILL BUCKLEY MD Member Role: Steam Engineer Address: Address: [facility] [place] [place] [address]- [place] Name: DANIEL LUGO MD Position: P4 BURNISHER AND BUMPER Provider Member Role: OBGYN Address: Address: [address] [place] [address]- Name: CIRA MCCRAY DO Position: P4 Physician - Primary Care Member Role: Primary Care Physician Address: Address: [address] [place] [address]- Name: YOVANNY LUQUE MD Member Role: Oncologist Address: Address: [facility] [place] [address]- Name: JEREMIAH WILLS MD Position: P3 Physician - Orthopedics Member Role: Orthopaedist Address: Address: [address] [place] [address] [address] [facility] [place] [address]- Care Team Related Persons Name: CHRISTOS CUEVAS Address: Home [address] [place] [phone] [place] Name: CALE RODRIGUEZ Care Team (unrecognized sect ion and content) Care Team Personnel Name: Nieves Guerra Clerk Aisha PT Position: P3 Scheduling - Automobile Mechanic Assistant Advanced Member Role: Other Name: CIRA MCCRAY DO Position: P4 Physician - Primary Care Member Role: Primary Care Physician Address: Address: [address] [place] [address] Care Team Related Persons Name: CHRISTOS CUEVAS Address: Home [address] [place] [phone] [place] Name: CALE RODRIGUEZ Care Team Personnel Name: Nieves Guerrarhumble Leonard PT Position: P3 Scheduling - Automobile Mechanic Assistant Advanced Member Role: Other Name: CIRA MCCRAY DO Position: P4 Physician - Primary Care Med Service: Active Provider Member Role: Primary Care Physician Address: Address: [address] [place] [address] Care Team Related Persons Name: CHRISTOS CUEVAS Address: Home [address] [place] [phone] [place] Name: CALE RODRIGUEZ Care Team Personnel Name: Nieves Guerrarhumble Leonard PT Position: P3 Scheduling - Automobile Mechanic Assistant Advanced Member Role: Other Name: CIRA MCCRAY DO Position: P4 Physician - Primary Care Member Role: Primary Care Physician Address: Address: [address] [place] [address] Care Team Related Persons Name: CHRISTOS CUEVAS Address: Home [address] [place] [phone] [place] Name: CALE RODRIGUEZ Care Team Personnel Name: Nieves Guerra Clerk Aisha PT Position: P3 Scheduling - Automobile Mechanic Assistant Advanced Member Role: Other Name: CIRA MCCRAY DO Position: P4 Physician - Primary Care Member Role: Primary Care Physician Address: Address: [address] [place] [address]- Care Team Related Persons Name: CHRISTOS CUEVAS Address: Home [address] [place], [place] [phone] [place] Name: CALE RODRIGUEZ Care Team Personnel Name: Nieves Guerra Clerk Aisha PT Position: P3 Scheduling - Automobile Mechanic Assistant Advanced Member Role: Other Name: CIRA MCCRAY DO Position: P4 Physician - Primary Care Member Role: Primary Care Physician Address: Address: [address] [place] [address] Care Team Related Persons Name: CHRISTOS CUEVAS Address: Home [address] [place], [place] [phone] [place] Name: JENNIFER CALE Care Team Personnel Name: Nieves Guerra Clerk Aisha PT Position: P3 Scheduling - Automobile Mechanic Assistant Advanced Member Role: Other Name: BILL BUCKLEY MD Member Role: Steam Engineer Address: Address: [facility] [address] [facility] [place] [address]- Name: DANIEL LUGO MD Position: P4 BURNISHER AND BUMPER Provider Member Role: OBGYN Address: Address: [address] [place], [place] [address]s [facility] [place] [place] [address]- Name: CIRA MCCRAY DO Position: P4 Physician - Primary Care Member Role: Primary Care Physician Address: Address: [address] [place] [address]- Name: YOVANNY LUQUE MD Member Role: Oncologist Address: Address: [address] [place] [address]- Name: JEREMIAH WILLS MD Position: P3 Physician - Orthopedics Member Role: Orthopaedist Address: Address: [address] [place] [address] [address] [facility] [place] [address]- Care Team Related Persons Name: CHRISTOS CUEVAS Address: Home [address] [place], [place] [phone] [place] Name: CALE RODRIGUEZ Care Team Personnel Name: Nieves Guerra Clerk Aisha PT Position: P3 Scheduling - Automobile Mechanic Assistant Advanced Member Role: Other Name: BILL BUCKLEY MD Member Role: Steam Engineer Address: Address: [facility] [address] [place] [id number] Name: DANIEL LUGO MD Position: P4 BURNISHER AND BUMPER Provider Member Role: OBGYN Address: Address: [address] [place], [place] [address] [facility] [place], [place] [address] Name: CIRA MCCRAY DO Position: P4 Physician - Primary Care Member Role: Primary Care Physician Address: Address: [address] [place] [address] [facility] [place] [address] Name: YOVANNY LUQUE MD Member Role: Oncologist Address: Address: [address] [place] [phone] Name: JEREMIAH WILLS MD Position: P3 Physician - Orthopedics Member Role: Orthopaedist Address: Address: [address] [place] [address] [address] [facility] [place] [id number] Care Team Related Persons Name: CHRISTOS CUEVAS Address: [address] [phone] Name: CALE RODRIGUEZ Source Comments (unrecognize d section and content) In the event this informatio n is protected by the Federal Confidentiality of Alcohol and Drug Abuse Patient Records regulations: The Federal rules restrict any use of the information to criminally investigate or prosecute any alcohol or drug abuse patient.[facility] Reason for Visit (unrecogniz ed section and content) Reason Onset Date Comments Population Health Navigation Outreach 12/24/2022 [facility]CO No PCP list FOR RECORDS PERTAINING TO PATIENTS WHO ARE OR HAVE BEEN ENROLLED IN A CHEMICAL DEPENDENCY/SUBSTANCEABUSE PROGRAM, SOME INFORMATION MAY BE OMITTED. This clinical summary was aggregated from multiple sources. Caution should be exercised in using it in the provision of clinical care. This summary normalizes information from multiple sources, and as a consequence, information in this document may materially change the coding, format and clinical context of patient data. In addition, data may be omitted in some cases. CLINICAL DECISIONS SHOULD BE BASED ON THE PRIMARY CLINICAL RECORDS. [employer] [facility]. provides no warranty or guarantee of the accuracy or completeness of information in this document.
--- NOTE | 2024-06-04 08:10 | CT_ITS ---
STUDY: CT ABDOMEN AND PELVIS WITH CONTRAST REASON FOR EXAM: Female, 69 years old. Known breast cancer, restaging RADIATION DOSAGE (If Supplied By Facility): CTDIvol = ( 17.58 ) mGy, DLP = ( 852.26 ) mGycm TECHNIQUE: Transaxial images were obtained from the dome of the diaphragm to the symphysis pubis with oral contrast. Oral and amp; IV Readi-CAT and amp; 100mL Isovue-370 was administered. Sagittal and coronal images were reconstructed. Individualized dose optimization techniques were used for this CT. COMPARISON: 10/17/2010 FINDINGS: Right breast implant intact and free of complication. The visualized lung bases are unremarkable. The visualized portions of the heart are within normal limits. Liver is unremarkable aside from a simple 2.5 cm cyst in the right lobe. Normal gallbladder and extrahepatic biliary system. Normal spleen. Normal pancreas. Normal bilateral adrenal glands. No obstructive uropathy, stable simple bilateral renal cysts. Incidental note is again made of a retroaortic left renal vein. Normal visualized stomach. Normal small intestine. Normal colon. The appendix is visualized and appears normal. Appendix seen on coronal recon images 44 through 51 Normal abdominal aorta. Normal inferior vena cava. Normal retroperitoneum. Normal urinary bladder. Uterus is present, the endometrium cannot be accurately evaluated with CT. There are calcifications within the uterus consistent with involuted fibroids. Normal abdominal wall. There are diffuse degenerative changes of the visualized lumbar spine, and pelvis there is a grade 1 spondylolisthesis at L4-5. CT/Abdomen/Pelvis WITH Contrast IMPRESSION: No suspicious solid organ abnormality, simple hepatic and renal cysts, no specific follow-up needed. No free intraperitoneal fluid, air, or suspicious adenopathy, normal appendix visualized Uterus is present, the endometrium cannot be accurately evaluated with CT Degenerative bony changes Electronically Signed: Dickson Garza MD at 8:57 EDT ,
[2024-06-04 08:15] LABS: CREATININE FINGERSTICK < 1.0 mg/dL (0.55-1.02); EGFR FINGERSTICK > 60.0000 mL/min (>60)
== END | disposition home or self-care (01) ==
LOC: CT 07:46
PROVIDERS: PCP Family Medicine; Referring Provider Internal Medicine Medical Oncology; Visit Provider Internal Medicine Medical Oncology
DX: Z85.3 Personal history of malignant neoplasm of breast (principal); R19.7 Diarrhea, unspecified; R10.84 Generalized abdominal pain
CPT/HCPCS: 74177; Q9967